=== PATIENT | male | born 1970 | race African-American/Black ===

== ENCOUNTER 2023-08-31 12:41 | Emergency (ER) | payer BC, SELFPAY ==
[2023-08-31 12:44] VITALS: BP 188/99
[2023-08-31 13:03] LABS: % Basophils 0.5 % (0-2); % Eosinophils 2.6 % (0-6); % Immature Granulocytes 0.2 % (0-0.5); % Lymphocytes 43.4 % (20.5-51.1); % Monocytes 7.7 % (1.7-9.3); % Neutrophils 45.6 % (42.2-75.2); Absolute Eosinophils 0.2 10^3/uL (0-0.7); Absolute Lymphocytes 2.5 10^3/uL (1.2-3.4); Absolute Monocytes 0.4 10^3/uL (0.1-0.6); Absolute Neutrophils 2.6 10^3/uL (1.4-6.5); Hematocrit 39.5 % (39.0-52.0); Hemoglobin 13.9 g/dL (13.0-18.0); Mean Corp Hgb Conc. 35.2 g/dL (33.0-37.0); Mean Corpuscular Hgb 30.3 pg (27.0-31.0); Mean Corpuscular Volume 86.2 fL (80.0-94.0); Mean Platelet Volume 9.7 fL (7.4-10.4); Nucleated Red Blood Cells % 0 % (-); Platelet Count 325 10^3/uL (130-400); Red Blood Cell Count 4.58 10^6/uL (4.70-6.10); Red Cell Dist. Width 12.4 % (11.5-14.5); White Blood Cell Count 5.7 10^3/uL (4.8-10.8)
[2023-08-31 13:12] LABS: ALT (SGPT) 38 U/L (0-50); AST (SGOT) 37 U/L (17-59); Albumin 4.8 g/dl (3.5-5.0); Alkaline Phosphatase 90 U/L (38-126); Blood Urea Nitrogen 18 mg/dl (9-20); Calcium 9.7 mg/dl (8.4-10.2); Carbon Dioxide 26 mmol/L (22-30); Chloride 101 mmol/L (98-107); Glucose 232 mg/dl (70-99); Potassium 4.5 mmol/L (3.5-5.1); Sodium 135 mmol/L (135-145); Total Bilirubin 0.6 mg/dl (0.2-1.3); Total Protein 7.9 g/dl (6.3-8.2); eGFR > 60.00
[2023-08-31 13:28] LABS: Troponin I < 0.012 ng/ml
[2023-08-31 13:57] VITALS: BP 170/94
[2023-08-31 14:02] VITALS: BMI 31.9
--- NOTE | 2023-08-31 14:31 | ED.GENMED ---
History of Present Illness
General
Chief Complaint: Chest Pain
Source: patient
Time Seen by Provider: 08/31/23 14:03
Travel History
Have you had any contact with someone who has COVID-19?: No
Do you have any symptoms of coronavirus? Fever > 100 degrees, chills, cough, shortness of breath, sore throat, loss of taste or smell, muscle aches, or headache?: No
History of Present Illness
History of Present Illness:
52-year-old male presents emergency department with complaints of chest discomfort that has had on and off for the last 4 to 5 days. She describes the pain as a 'discomfort', having pain at rest, sometimes associated with diaphoresis, sometimes
associated with left-sided neck pain. Patient states that when the weather was nice he was walking and did not notice symptoms at that time. When he gets the pain he takes nitroglycerin and notes that the symptoms gradually resolve. He also has
taken extra aspirin. The worst episode was on Thursday which lasted a few hours for which she took 3 nitro. The last episode was earlier today when he felt the same chest discomfort lasting till 10 to 20 minutes. When asked about dyspnea he states
he only feels that when he bends over and stands up lasting a minute or 2. He denies dyspnea with associated chest pain. He denies back pain, abdominal pain, nausea, vomiting, fever, chills, or other complaints. He admits to being intermittently
compliant with his medications over the last few months.
Past History
Past History
ED Past Medical History: CAD, HTN, Hypercholesterolemia and NIDDM
ED Past Surgical History: Cardiac
Social History
Tobacco: Non-smoker
Alcohol: None
Drug: None
Personal:
Living: with family
Employment: Employed
Family History
Family History: Other (Noncontributory)
Phy Exam
Physical Exam
Physical Exam:
GENERAL: Alert , in no apparent distress
EYE: pupils equal and reactive
NECK: Supple, no significant adenopathy.
ENT: o/p clr, mmm.
CARDIAC: Regular rate and rhythm .
LUNGS: Clear breath sounds bilaterally, no acute respiratory distress, no wheezes/rales/rhonchi
ABDOMEN: Soft, without focal tenderness, no r/g, no cvat
NEUROLOGICAL: Alert and oriented, no focal neuro deficits
SKIN: Warm and dry, skin intact.
MUSCULOSKELETAL: No edema, well perfused.
PSYCH: Normal and appropriate interaction.
Scores
Heart Score for Chest Pain Patients
STEMI patient?: Not applicable
Course
Orders/Labs/Results
Orders:
Orders
08/31/23 12:42
EKG [Electrocardiogram (*1)] Urgent
Reason for Study: Chest Pain
EKG- Treatment ONCE
08/31/23 12:52
Complete Blood Count/With Diff Urgent
Comprehensive Metabolic Panel Urgent
Troponin I Urgent
08/31/23 16:02
Troponin I Urgent
Abnormal Lab Results
08/31/23
12:52
RBC 4.58 L 10^6/uL
(4.70-6.10)
Glucose 232 H mg/dl
(70-99)
08/31/23 12:52
08/31/23 12:52
Vital Signs
Initial and Last Documented VS:
Initial Vital Signs
Temp Pulse Resp BP Pulse Ox
98.0 F 86 16 188/99 98
08/31/23 12:44 08/31/23 12:44 08/31/23 12:44 08/31/23 12:44 08/31/23 12:44
Last Documented Vital Signs
Temp Pulse Resp BP Pulse Ox
98.0 F 80 17 162/86 95
08/31/23 12:44 08/31/23 17:45 08/31/23 17:45 08/31/23 17:00 08/31/23 17:45
*Critical Care Note
Total Time (30-74mins, 75-104mins- exclusive of procedures): Not Applicable
Update Note
Update Note:
Patient presents to the Emergency Department with __chest pain
Number and Complexity of Problems Addressed at the Encounter
� Chronic conditions affecting care:
� Acute Exacerbation and/or Progression of Chronic Illness:
� Differential Diagnosis includes: But not limited to ACS, reflux, nonspecific chest pain, etc.
Amount and/or Complexity of Data to be Reviewed and Analyzed
� I performed an independent evaluation of and my interpretation is:
EKG: Read by me, normal sinus rhythm, right bundle branch block, LAD, no acute ischemia noted
CT:
Xrays:
Laboratory Studies: 2:34 PM first troponin unremarkable
Other:
� Review of other/old records reveals: Patient had bypass GALVEZ to LAD and SVG to RCA jul 2021 with follow-up recent catheterization that showed patent grafts
� Clinical information was obtained by an independent historian: who is bedside
� Prescriptions/Medications Considered but not given:
� Further testing considered but not performed:
Risk of Complications and/or Morbidity or Mortality of Patient Management
� Social determinants of health affecting care:
� Discussion with other providers (PCP, Hospitalists, Consultants, etc): Case discussed with Dr. Julián Amos via [place] text, described history physical etc. and requested bedside consultation here in the ER
� Escalation of care including admission/observation vs risk of discharge considered: 5:32 PM patient remained stable here, repeat troponin unremarkable, patient seen by cardiology, recommendations as documented here, patient
aware of importance of follow-up and reasons to return to the ER.
ED Attending Note
-
Portions of this chart may have been created with voice recognition software.� Occasional wrong word or��sound alike� substitutions may have occurred due to the inherent limitations of voice recognition software.
Discharge Plan
Departure
Patient Disposition: Home (Routine Discharge)
Date of Disposition: 08/31/23
Time of Disposition: 17:31
Patient with high blood pressure during this ER visit?: Yes
Discharge Problem:
Chest pain
Instructions: Chest Pain [facility] Follow Up, BLOOD PRESSURE
Prescriptions:
New
lisinopril 2.5 mg tablet
2.5 mg PO DAILY Qty: 30 0RF
Continued
amlodipine 5 mg tablet
5 mg PO DAILY Qty: 90 5RF
Changed
metoprolol tartrate 75 mg tablet
100 mg PO BID Qty: 60 11RF
No Action
atorvastatin 80 MG tablet
80 mg PO QPM Qty: 30 11RF
multivitamin [One Daily Multivitamin] 1 EACH tablet
1 ea PO DAILY
metformin 500 MG tablet
1,000 mg PO BID@0800,1700
aspirin 81 mg Tablet,Delayed Release (Dr/Ec)
81 mg PO DAILY
acetaminophen [Tylenol] 325 mg Tablet
650 mg PO Q4H PRN (Reason: shoulder pain)
zinc 50 mg Tablet
50 mg PO DAILY
ezetimibe [Zetia] 10 mg Tablet
10 mg PO QPM
cholecalciferol (vitamin D3) [Vitamin D3] 25 mcg (1,000 unit) Tablet
25 mcg PO DAILY
Farxiga 10 mg Tablet
10 mg PO DAILY
Referrals:
[facility] [Provider Group] - 09/10/23 4:00 pm (You have an echo scheduled at the [facility] 09/10/2023 at 4:00 PM. Please call with questions. )
Winter Escobedo PA-C [Specified Professional Personl] - 09/11/23 1:40 pm (You have a follow up visit with Dr. Crain's Winter COSTA, at the [facility] office. Please call with questions. )
BAYLEE MARTIN CRNP [Family Provider] -
Activity Restrictions/Additional Instructions:
You have been arranged for an echo at the [place] office 09/10/2023 at 4:00. Please call with questions.
Please obtain fasting blood work prior to follow up visit 09/11/2023 (Lipid panel, metabolic panel, and A1c.) Order has been sent to [facility].
Increase your metoprolol to 100mg twice daily
Increase amlodipine to 5mg daily
Restart lisinopril 2.5mg daily.
Interventions
Interventions:
*Risk Screen - Suicide Last Done: 08/31/23 14:02
*General Assessment Last Done: 08/31/23 14:02
*Neglect/Abuse Screening Last Done: 08/31/23 14:02
ED- Fall Risk Assessment Last Done: 08/31/23 14:02
*ED COVID-19 Vaccine History Last Done: 08/31/23 12:44
*Nursing Disposition Last Done: 08/31/23 18:05
ED- Cardiac Assessment Last Done: 08/31/23 14:02
Discharge Date and Time
Discharge Date/Time: 08/31/23 18:07
Print Language: SALVADOREAN
[2023-08-31 15:00] VITALS: BP 150/77
--- NOTE | 2023-08-31 15:55 | CON.CAR ---
Addendum entered and electronically signed by Nasim Waggoner MD 08/31/23 16:57:
Attending addendum: Patient seen and examined. PA note reviewed. Findings independently confirmed by me. Discussed clinical history with patient and his present during history and physical exam. Briefly, this is a 52-year-old gentleman with
a past medical history notable for coronary artery disease and multiple coronary stents and eventual history of coronary artery bypass grafting with a GALVEZ-LAD, SVG-OM, and SVG-distal RCA. The graft to the RCA was small and somewhat atretic. There
were multiple pre-existing stents in the right coronary artery. He is a longstanding diabetic but rarely seeks medical attention and has not had a hemoglobin A1c checked for quite some time. He he ran out of [employer] sometime ago. He has
been under elderly father and spends his time between his home and [place] and work/family duties more locally.
He presented to [facility] emergency department for evaluation of substernal chest pressure that has been intermittently present over the past 4 days. His symptoms seem to occur at random. Last week he returned to somewhat of a normal
exercise program walking up to 2 miles a day and 30 to 40 minutes without anginal symptoms. He will occasionally experience left-sided chest discomfort that he said was somewhat reminiscent of his prior coronary disease.
Physical Exam
GEN: AAO x 3. No acute distress
HEENT: NC/AT, sclera are anicteric, hearing and nares are normal. MMM
NECK: Supple. Normal JVP. No carotid bruit
LUNGS: Clear to bases bilaterally. No wheezing or rhonchi
CV: Regular rate and rhythm. Normal S1/S2. No S3, No S4. Murmur: None
ABD : Soft, NT, ND, No HSM. Bowel sounds are present.
EXT: No CCE
NEURO: No focal neurologic deficits
Data: WBC 5.7, Hgb/HCT 13.9/39.5%, platelets 325 glucose 232, BUN/CR: 18/0.7, troponin less than 0.012, AST/ALT 37/38, glucose 232 nonfasting
ECG: Sinus rhythm with right bundle branch block and ST deviation. Possible old inferior DC.
RECOMMENDATION:
-Awaiting repeat troponin. If troponin remains within normal limits we wouldallow patient to be discharged with plans to follow-up in our office
-Modifiable risk factors of coronary disease have been ignored by the patient and really suboptimally controlled. He has not been seen or evaluated in our office in over a year and ran out of both his [employer] and [employer] several months ago. He has
not had hemoglobin A1c or fasting lipid profile checked in well over a year. In fact, our records have no lipids available.
-Hypertension remains suboptimally controlled. We recommended the following:
Increase Lopressor to 100 mg p.o. twice daily
Increase amlodipine from 2.5 to 5 mg daily
Restart lisinopril 2.5 mg daily with planned blood work in a week. The patient's and the patient both understand that it will be important to have blood work within a week. An order has been printed and given to the patient.
I have asked patient to obtain a home blood pressure monitor and begin recording his blood pressures once daily at varying times. We discussed how to standardized home blood pressure readings by avoiding exercise and caffeine within 30 minutes of
obtaining the home readings, to sit and rest with feet on the ground for 10 minutes before obtaining the reading and to obtain 3 readings 1 minute apart. I have asked him to bring his blood pressure cuff to the office so we can confirm its accuracy.
-Mixed hyperlipidemia: No recent cholesterol readings.
Would recommend continued high intensity lipid-lowering with 80 mg of atorvastatin and to continue Zetia.
The timing of the fasting lipid profile may be somewhat suboptimal and that he just restarted his Zetia, however, he needs blood work after resuming lisinopril and would be reasonable to obtain lipids at the same time
-Diabetes:
I would suspect that his diabetes has been very poorly controlled. 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 However, since caring for elderly parents with failing health he has gotten
away from exercise and his weight has steadily climbed over 70 pounds within the past year. He has been out of [facility]. He has not had his hemoglobin A1c checked for some time. We discussed how important management of his diabetes will be going
forward.
-Coronary artery disease:
Awaiting repeat troponin. We discussed the need to continue aspirin. We discussed modifiable risk factors and weights to prove blood pressures including further titration of medications as listed above
It has been sometime since his LVEF has been reassessed by echocardiogram. This study has been ordered for follow-up.
-Medication noncompliance has been discussed with the patient. Given his youthful age he would greatly benefit from aggressive risk modification moving forward
Original Note:
Consultation
Consultation Request
Date/Time Consultation Requested: 08/31/2023
Date/Time Consultation Performed: 08/31/2023
Requesting Provider: Dr. Quispe
Performing Provider: Dr. Waggoner
Reason for Consultation: Chest Pain
Medical History
-
History of Present Illness:
HPI: Dat is a 52-year-old male with past medical history of CAD status post CABG x 3 07/2021, hypertension, hyperlipidemia, and diabetes mellitus type 2. He presents to ER for evaluation of chest pain. He states that over the past few days he
has had multiple occurrences of intermittent, random chest pain. Symptoms mostly occur while at rest. He has been having episodes of chest pain that lasted 20 minutes to 1 hour multiple times per day. He states the pain is left-sided with
radiation occasionally into his neck. He admits to frequent use of nitroglycerin, however admits that this does not always help with his pain. He has also noted intermittent shortness of breath with bending over as well as intermittent dizziness.
He has had no syncope or near syncope. He has been compliant with his aspirin and atorvastatin, however does admit that he has not been taking his Farxiga or Zetia as he ran out of these a few months ago and recently just got refills. He notes he
has not been as active recently, however when weather was nice a few weeks ago, he walked on a daily basis for exercise and had no exertional symptoms at that time. He admits over the past year, he has been under an increased amount of stress as
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 He admits that he has had weight gain and has not been as active. He does not check his blood pressures at home. Blood pressures in ER are
elevated at 188/99. He reports he is taking amlodipine, however unclear when this was started. In ER, workup has thus far been benign. Troponin negative x 1. Lab work unremarkable otherwise. EKG sinus rhythm with right bundle branch block which
is chronic. No acute ischemic changes noted. Cardiology consulted for evaluation of chest pain given significant coronary history. He is pain-free at this time.
PMH:
CAD
h/o STEMI s/p JASON x 2 to RCA, JASON to LCx 10/12/2016
s/p CABG x 3 (GALVEZ to LAD, SVG to OM1, SVG to RPDA) 07/2021
Severe yuhaaviatam CAD with widely patent GALVEZ to LAD and SVG to OM1. SVG to RPDA patent with diffusely atretic appearance by cath 06/18/2022
Hypertension
Hyperlipidemia
Diabetes mellitus type 2
Past Medical History
Past Medical History: Other (In HPI)
Past Surgical History: Cardiac (PCI x3 2016, CABG x 3 07/2021)
Social History
Tobacco: Non-Smoker
Alcohol: Daily (multiple beers/hard ciders per day)
Drug: None
Personal:
Living: With Family
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
Family History
Family History: CAD
Allergies / Home Medications
Allergy/AdvReac Type Severity Reaction Status Date / Time
No Known Allergies Allergy Verified 08/31/23 12:48
�Medication �Instructions �Recorded �Confirmed �Type
atorvastatin 80 mg tablet 80 mg PO QPM ##30 10/14/16 06/18/22 Rx
metformin 500 mg tablet 1,000 mg PO BID@0800,1700 08/19/19 06/18/22 History
multivitamin (One Daily 1 ea PO DAILY 08/19/19 06/18/22 History
Multivitamin tablet)
acetaminophen 325 mg tablet 650 mg PO Q4H PRN shoulder pain 04/09/22 06/18/22 History
(Tylenol)
aspirin 81 mg tablet,delayed 81 mg PO DAILY 04/09/22 06/18/22 History
release
cholecalciferol (vitamin D3) 25 25 mcg PO DAILY 04/09/22 06/18/22 History
mcg (1,000 unit) tablet (Vitamin
D3)
dapagliflozin propanediol 10 mg 10 mg PO DAILY 04/09/22 06/18/22 History
tablet (Farxiga)
ezetimibe 10 mg tablet (Zetia) 10 mg PO QPM 04/09/22 06/18/22 History
zinc 50 mg tablet 50 mg PO DAILY 04/09/22 06/18/22 History
amlodipine 5 mg tablet 5 mg PO DAILY #90 tabs 06/18/22 Rx
metoprolol tartrate 75 mg tablet 75 mg PO BID #180 tabs 06/18/22 Rx
Review of Systems
-
History Source: Patient
All other systems: Negative unless noted
Physical Exam
Vital Signs
Temp Pulse Resp BP Pulse Ox
98.0 F 86 16 170/94 100
08/31/23 12:44 08/31/23 12:44 08/31/23 12:44 08/31/23 13:57 08/31/23 13:57
Lab Results
08/31/23 12:52
08/31/23 12:52
Troponin I < 0.012 ng/ml 08/31/23 12:52
Physical Exam
General: Well Developed, Well Nourished and No Apparent Distress
HEENT: Anicteric and Moist Mucous Membranes
Cardiac: S1/S2 and Regular Rhythm
Musculoskeletal: No Clubbing, No Cyanosis and No Edema
Skin: Warm and Dry
Neuro: AO x 3 and Nonfocal/Grossly Intact
Psych: Calm
Impression / Plan
-
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 Crain
Impression:
Presented with chest pain
CAD
h/o STEMI s/p JASON x 2 to RCA, JASON to LCx 10/12/2016
s/p CABG x 3 (GALVEZ to LAD, SVG to OM1, SVG to RPDA) 07/2021
Severe yuhaaviatam CAD with widely patent GALVEZ to LAD and SVG to OM1. SVG to RPDA patent with diffusely atretic appearance by cath 06/18/2022
Hypertension
Hyperlipidemia
Diabetes mellitus type 2
Echo 05/22/2022: EF 50 to 55%, moderate hypokinesis of the basal to mid inferior and inferolateral dolan, mild concentric LVH, stage I diastolic dysfunction, no significant valvular disease
LHC 06/18/2022: Severe yuhaaviatam coronary artery disease. Widely patent GALVEZ to LAD and SVG to OM1. SVG to RPDA is patent with CHETNA-3 flow but has diffusely atretic appearance.
Plan:
-Presented with chest pain. Pain is nonexertional in nature, but has been happening frequently, multiple times per day over the past 4 to 5 days.
-Troponin negative x 1 in the ER. Repeat troponin pending.
-EKG reviewed and patient is in sinus rhythm with RBBB. No acute ischemic changes noted.
-BP significantly elevated. Reports he is on amlodipine 2.5 mg daily, however unclear when this was started as it is not on OP cardiac med list.
-On lopressor 75mg BID. With HTN and chest pain, would recommend increasing amlodipine to 5mg daily and lopressor to 100mg BID.
-Previously was on lisinopril as OP, however reports it was stopped for unclear reasons after CABG. Will restart 2.5mg daily. Check CMP as OP.
-Continue aspirin 81mg daily.
-Continue lipitor 80mg daily and zetia 10mg daily. Of note, has not been taking zetia as ran out and only recently obtained refill. Check CVE prior to next OV.
-On metformin and Farxiga. Also ran out of farxiga for a few months and recently restarted. Check Hgb A1c prior to next OV.
-If second troponin returns negative, would be ok for discharge with close outpatient follow up which will be arranged. Would consider echo and/or ischemic evaluation at follow up.
HPI: Dat is a 52-year-old male with past medical history of CAD status post CABG x 3 07/2021, hypertension, hyperlipidemia, and diabetes mellitus type 2. He presents to ER for evaluation of chest pain. He states that over the past few days he
has had multiple occurrences of intermittent, random chest pain. Symptoms mostly occur while at rest. He has been having episodes of chest pain that lasted 20 minutes to 1 hour multiple times per day. He states the pain is left-sided with
radiation occasionally into his neck. He admits to frequent use of nitroglycerin, however admits that this does not always help with his pain. He has also noted intermittent shortness of breath with bending over as well as intermittent dizziness.
He has had no syncope or near syncope. He has been compliant with his aspirin and atorvastatin, however does admit that he has not been taking his Farxiga or Zetia as he ran out of these a few months ago and recently just got refills. He notes he
has not been as active recently, however when weather was nice a few weeks ago, he walked on a daily basis for exercise and had no exertional symptoms at that time. He admits over the past year, he has been under an increased amount of stress as
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 He admits that he has had weight gain and has not been as active. He does not check his blood pressures at home. Blood pressures in ER are
elevated at 188/99. He reports he is taking amlodipine, however unclear when this was started. In ER, workup has thus far been benign. Troponin negative x 1. Lab work unremarkable otherwise. EKG sinus rhythm with right bundle branch block which
is chronic. No acute ischemic changes noted. Cardiology consulted for evaluation of chest pain given significant coronary history. He is pain-free at this time.
Data Reviewed
-
EKG: Tracing Personally Visualized and interpreted
Labs: Labs Reviewed by me
Old Records: Reviewed
[2023-08-31 16:00] VITALS: BP 156/82
[2023-08-31 17:00] VITALS: BP 162/86
[2023-08-31 17:13] LABS: Troponin I < 0.012 ng/ml
== END 2023-08-31 18:07 | disposition home or self-care (01) ==
LOC: EMR 12:41
PROVIDERS: Emergency Medicine; EMERGENCY PHYSICIAN Emergency Medicine; FAMILY PHYSICIAN Nurse Practitioner Family; OTHER PHYSICIAN Internal Medicine Interventional Cardiology
DX: R07.89 Other chest pain (principal); R61 Generalized hyperhidrosis; I10 Essential (primary) hypertension
CPT/HCPCS: 99284; 80053; 84484; 85025; 93005

== ENCOUNTER → 2023-09-07 12:26 | Outpatient (REF) | payer BC, SELFPAY ==
[2023-09-07 13:20] LABS: ALT (SGPT) 49 U/L (0-50); AST (SGOT) 41 U/L (17-59); Albumin 4.6 g/dl (3.5-5.0); Alkaline Phosphatase 85 U/L (38-126); Blood Urea Nitrogen 18 mg/dl (9-20); Calcium 9.8 mg/dl (8.4-10.2); Carbon Dioxide 24 mmol/L (22-30); Chloride 104 mmol/L (98-107); Glucose 184 mg/dl (70-99); HDL Cholesterol 39 mg/dl; LDL Cholesterol, Calculated 101 mg/dl; Potassium 4.5 mmol/L (3.5-5.1); Sodium 136 mmol/L (135-145); Total Bilirubin 0.5 mg/dl (0.2-1.3); Total Cholesterol 163 mg/dl (50-199); Total Protein 7.3 g/dl (6.3-8.2); Triglyceride 119 mg/dl (10-149); Very Low Density Lipoprotein 23 mg/dl (0-30); eGFR > 60.00
[2023-09-07 14:54] LABS: Glycohemoglobin (HgbA1c) 10.5 % (4.0-5.6)
== END ==
LOC: REG 12:26
PROVIDERS: ATTENDING PHYSICIAN Internal Medicine Interventional Cardiology
DX: I25.10 Atherosclerotic heart disease of native coronary artery without angina pectoris (principal); Z86.39 Personal history of other endocrine, nutritional and metabolic disease; E78.00 Pure hypercholesterolemia, unspecified; R07.89 Other chest pain; I25.2 Old myocardial infarction
CPT/HCPCS: 36415; 80053; 80061; 83036

== ENCOUNTER → 2023-09-10 15:34 | Outpatient (REF) | payer BC, SELFPAY | LOC: DHCBS MAIN 15:34 | PROVIDERS: ATTENDING PHYSICIAN Internal Medicine Interventional Cardiology | DX: I25.10 Atherosclerotic heart disease of native coronary artery without angina pectoris (principal); I25.2 Old myocardial infarction; R07.89 Other chest pain | CPT/HCPCS: 93306 ==

== ENCOUNTER → 2024-01-25 07:03 | Outpatient (REF) | payer BC, SELFPAY | LOC: DHCBC/DCA 07:03 | PROVIDERS: ATTENDING PHYSICIAN Physician Assistant Medical; FAMILY PHYSICIAN Nurse Practitioner Gerontology | DX: R06.09 Other forms of dyspnea (principal); R07.9 Chest pain, unspecified; I25.10 Atherosclerotic heart disease of native coronary artery without angina pectoris | CPT/HCPCS: 78452; 93017; A9500 ==

== ENCOUNTER 2024-02-08 15:49 | Emergency (ER) | payer BC, SELFPAY ==
[2024-02-08 15:53] VITALS: BP 111/74
[2024-02-08 16:44] LABS: % Basophils 0.7 % (0-2); % Eosinophils 2.8 % (0-6); % Immature Granulocytes 0.2 % (0-0.5); % Lymphocytes 46.6 % (20.5-51.1); % Monocytes 8.1 % (1.7-9.3); % Neutrophils 41.6 % (42.2-75.2); Absolute Eosinophils 0.2 10^3/uL (0-0.7); Absolute Lymphocytes 2.8 10^3/uL (1.2-3.4); Absolute Monocytes 0.5 10^3/uL (0.1-0.6); Absolute Neutrophils 2.5 10^3/uL (1.4-6.5); Hematocrit 36.5 % (39.0-52.0); Hemoglobin 12.9 g/dL (13.0-18.0); Mean Corp Hgb Conc. 35.3 g/dL (33.0-37.0); Mean Corpuscular Hgb 30.4 pg (27.0-31.0); Mean Corpuscular Volume 85.9 fL (80.0-94.0); Mean Platelet Volume 9.9 fL (7.4-10.4); Nucleated Red Blood Cells % 0 % (-); Platelet Count 304 10^3/uL (130-400); Red Blood Cell Count 4.25 10^6/uL (4.70-6.10); Red Cell Dist. Width 12.5 % (11.5-14.5); White Blood Cell Count 6.1 10^3/uL (4.8-10.8)
[2024-02-08 16:57] LABS: ALT (SGPT) 33 U/L (0-50); AST (SGOT) 38 U/L (17-59); Albumin 4.8 g/dl (3.5-5.0); Alkaline Phosphatase 97 U/L (38-126); Blood Urea Nitrogen 28 mg/dl (9-20); Calcium 9.7 mg/dl (8.4-10.2); Carbon Dioxide 25 mmol/L (22-30); Chloride 97 mmol/L (98-107); Glucose 111 mg/dl (70-99); Potassium 4.4 mmol/L (3.5-5.1); Sodium 135 mmol/L (135-145); Total Bilirubin 0.7 mg/dl (0.2-1.3); Total Protein 7.3 g/dl (6.3-8.2); eGFR > 60.00
[2024-02-08 17:00] VITALS: BP 106/66
[2024-02-08 17:09] LABS: Troponin I < 0.012 ng/ml
--- NOTE | 2024-02-08 17:41 | ED.GENMED ---
History of Present Illness
General
Chief Complaint: Dizziness
Time Seen by Provider: 02/08/24 17:08
History of Present Illness
History of Present Illness:
Patient is a 53-year-old male with history of CAD with multiple stents, hypertension presenting to the emergency department with chest pain and dizziness. Patient states that 2 weeks ago his blood pressure medications were adjusted and he was
started on a combination lisinopril/hydrochlorothiazide. Since then has been having episodes of lightheadedness dizziness. Today he woke up with feeling lightheaded dizzy. Checked his blood pressure and it was in the 80s. It did improve to the
90s however he was still symptomatic so then he had 55 ounces of water as well as saltine crackers and then his blood pressure increased to the 114. He does state he has been having decreased p.o. and had he has been avoiding salt trying to improve
his health. He also around 1 PM developed neck pain that radiated down to his chest while he was sitting and it lasted 15 minutes. This did not feel like his prior heart attack. No nausea or vomiting. No diarrhea.
Past History
Past History
ED Past Medical History: CAD, HTN, Hypercholesterolemia and NIDDM
ED Past Surgical History: Cardiac
Social History
Tobacco: Non-smoker
Alcohol: None
Drug: None
Personal:
Living: with family
Employment: Employed
Family History
Family History: Other (Noncontributory)
Phy Exam
Physical Exam
Physical Exam:
GENERAL: in no acute distress
HEENT: normocephalic, extraocular movements intact, moist oral mucosa
NECK: normal inspection
RESPIRATORY: no respiratory distress, clear to auscultation bilaterally
CARDIOVASCULAR: regular rate and rhythm
ABDOMEN/: soft, non-distended, non-tender to palpation, no rebound or guarding
EXTREMITIES: non-tender, no edema/swelling
NEUROLOGIC: awake and alert, moves all extremities
SKIN: warm
Course
Orders/Labs/Results
Orders:
Orders
02/08/24 15:53
Electrocardiogram (*1) Urgent
Reason for Study: Other
Other Reason for Exam: neck pain
EKG- Treatment ONCE
02/08/24 16:29
Complete Blood Count/With Diff Urgent
Comprehensive Metabolic Panel Urgent
Troponin I Urgent
02/08/24 17:30
0.9% Sodium Chloride 500 ml [Nss] 500 ml IV BOLUS
02/08/24 19:37
Troponin I Routine
02/08/24 19:39
Electrocardiogram (*1) Urgent
EKG- Treatment ONCE
Abnormal Lab Results
02/08/24
16:29
RBC 4.25 L 10^6/uL
(4.70-6.10)
Hgb 12.9 L g/dL
(13.0-18.0)
Hct 36.5 L %
(39.0-52.0)
Neutrophils % 41.6 L %
(42.2-75.2)
Chloride 97 L mmol/L
(98-107)
BUN 28 H mg/dl
(9-20)
Glucose 111 H mg/dl
(70-99)
02/08/24 16:29
02/08/24 16:29
Vital Signs
Initial and Last Documented VS:
Initial Vital Signs
Temp Pulse Resp BP Pulse Ox
97.8 F 83 18 111/74 99
02/08/24 15:53 02/08/24 15:53 02/08/24 15:53 02/08/24 15:53 02/08/24 15:53
Last Documented Vital Signs
Temp Pulse Resp BP Pulse Ox
97.8 F 83 18 111/74 99
02/08/24 15:53 02/08/24 15:53 02/08/24 15:53 02/08/24 15:53 02/08/24 15:53
MDM/Problems Addressed
Differential Diagnosis Includes:
Patient is a 53-year-old male with history of hypertension, CAD with stents presenting to the emergency department lightheadedness dizziness and chest pain that is now resolved. Vitals are notable for blood pressure in the low 100 and exam is
reassuring.
Differential: ACS versus dehydration versus SRAVAN
MDM: Given the neck pain and chest pain and his history I am concerned about ACS. Initial EKG per my interpretation normal sinus rhythm with right bundle hamlet block and is similar to prior. Given her lightheadedness dizziness and low blood
pressure could be related to the antihypertensive or dietary changes.
Will order basic blood work EKG and IV fluids. He will need delta troponin.
*Critical Care Note
Total Time (30-74mins, 75-104mins- exclusive of procedures): Not Applicable
Update Note
Update Note:
Second troponin negative. Given his blood pressure has improved after the IV fluids. He does feel much better. He will follow-up with cardiology and PCP. Will discharge at this time. Education provided on restarting antihypertensives. Given
that the old antihypertensive was working better decision was made to only take the lisinopril 5 mg if his blood pressure is greater than 120.
ED Attending Note
-
Portions of this chart may have been created with voice recognition software.� Occasional wrong word or��sound alike� substitutions may have occurred due to the inherent limitations of voice recognition software.
Discharge Plan
Departure
Patient Disposition: Home (Routine Discharge)
Date of Disposition: 02/08/24
Time of Disposition: 21:24
Patient with high blood pressure during this ER visit?: No
Discharge Problem:
Dizziness, Chest pain
Instructions: Chest Pain DCA Follow Up
Prescriptions:
No Action
atorvastatin 80 MG tablet
80 mg PO QPM Qty: 30 11RF
multivitamin [One Daily Multivitamin] 1 EACH tablet
1 ea PO DAILY
metformin 500 MG tablet
1,000 mg PO BID@0800,1700
aspirin 81 mg Tablet,Delayed Release (Dr/Ec)
81 mg PO DAILY
acetaminophen [Tylenol] 325 mg Tablet
650 mg PO Q4H PRN (Reason: shoulder pain)
zinc 50 mg Tablet
50 mg PO DAILY
ezetimibe [Zetia] 10 mg Tablet
10 mg PO QPM
cholecalciferol (vitamin D3) [Vitamin D3] 25 mcg (1,000 unit) Tablet
25 mcg PO DAILY
Farxiga 10 mg Tablet
10 mg PO DAILY
lisinopril 2.5 mg tablet
2.5 mg PO DAILY Qty: 30 0RF
amlodipine 5 mg tablet
5 mg PO DAILY Qty: 90 5RF
metoprolol tartrate 75 mg tablet
100 mg PO BID Qty: 60 11RF
Activity Restrictions/Additional Instructions:
You were seen in the Emergency Department today for lightheadedness and chest pain. While you were here we performed blood work, which was reassuring. Please follow-up with her primary care doctor to have your blood work rechecked to evaluate your
kidney function. Please take the blood pressure medications as we discussed and please check your blood pressure every day.
We would like for you to follow up with your primary care physician for further evaluation. If you experience fever, worsening of your symptoms, or develop any other new or concerning symptoms, please return to the Emergency Department immediately.
Please see the attached sheet for additional information.
Interventions
Interventions:
*Risk Screen - Suicide Last Done: 02/08/24 17:15
*Neglect/Abuse Screening Last Done: 02/08/24 17:15
ED- Neurological Assessment Last Done: 02/08/24 17:15
ED- Cardiac Assessment Last Done: 02/08/24 17:15
Discharge Date and Time
Print Language: TUVALUAN
[2024-02-08] MEDS: NSS 500 IV (17:51)
[2024-02-08 18:00] VITALS: BP 125/73
[2024-02-08 19:00] VITALS: BP 121/77
[2024-02-08 20:00] VITALS: BP 122/72
[2024-02-08 20:10] LABS: Troponin I < 0.012 ng/ml
[2024-02-08 21:00] VITALS: BP 120/67
== END 2024-02-08 21:45 | disposition home or self-care (01) ==
LOC: EMR 15:49
PROVIDERS: Student in an Organized Health Care Education/Training Program; EMERGENCY PHYSICIAN Student in an Organized Health Care Education/Training Program; FAMILY PHYSICIAN Nurse Practitioner Gerontology
DX: R42 Dizziness and giddiness (principal); I25.10 Atherosclerotic heart disease of native coronary artery without angina pectoris; I10 Essential (primary) hypertension; E11.9 Type 2 diabetes mellitus without complications; E78.00 Pure hypercholesterolemia, unspecified; Z95.5 Presence of coronary angioplasty implant and graft
CPT/HCPCS: 99283; 80053; 84484; 85025; 93005

== ENCOUNTER 2024-02-29 11:59 | Inpatient (IN) | payer BC, SELFPAY ==
[2024-02-26] VITALS (23 sets, daily range): BP systolic 117–168; BP diastolic 68–99; BMI 29.4
--- NOTE | 2024-02-26 09:08 | ITS.CL.CATH ---
Assistant Boiler Operator - Catheterization
Cardiac Catheterization
Procedure Report:
LEFT HEART CATHETERIZATION
Date of Procedure: February 26, 2024
Referring: Winter Escobedo PA-C and Kevyn Singh D.O.
PROCEDURES:
1. Left heart cath, coronary angiogram, graft angiography
2. Ultrasound-guided access
INDICATION: Patient is a 53-year-old gentleman with past medical history of hypertension, hyperlipidemia, type 2 diabetes mellitus, [id number], coronary artery disease status post RCA stents in 2016 with subsequent need for coronary
artery bypass graft at [facility] in July 2021 with GALVEZ to LAD, saphenous vein graft to OM and distal RCA who postoperatively especially going through cardiac rehab had ongoing episodes of chest discomfort with some typical and atypical
features. Nuclear stress test was obtained which showed a reversible defect in basal to mid anteroseptal dolan concerning for ischemia and thus he now presents for elective coronary angiography. He had undergone heart catheterization in 2022 but
significant baseline CAD with no obvious culprit and patent grafts. Over the last couple of months he has been having recurrent chest discomfort with some atypical and typical features with intermittent shortness of breath, not always exertional in
nature. He played baseball last night with no limitations. He had a repeat nuclear stress test which showed stable findings but given ongoing symptoms he is now referred for a left heart catheterization. He had been taken off amlodipine which was
started after 2022 heart catheterization and has now resumed starting yesterday.
ACCESS: Right common femoral artery, 6 Yakut sheath, under ultrasound guidance, using a micropuncture kit.
HEMODYNAMICS : (mmHg)
AO (s/d) : 141/78
LV (s/d) : 140/9
LVEDP : 21
Using a 6Fr JL4 catheter and a JR4 catheter for the left and right coronary arteries respectively, selective cine coronary angiography was performed in various angulated and oblique views using automated injections of non-ionic contrast. Using a 5
Fr MPA diagnostic catheter we engaged the SVG to the RPDA (previously JR4 and AL-1 were unable to selectively engage), a Merit NICK catheter to engage the GALVEZ and the JR4 diagnostic catheter to engage the SVG to the OM1.
CORONARY FINDINGS:
DOMINANCE: Right
LEFT MAIN:� Large caliber vessel that gives rise to the left anterior descending and left circumflex branches. The left main has diffuse 20-30% stenosis.
LEFT ANTERIOR DESCENDING:� Large caliber vessel that wraps around the cardiac apex. The LAD is severely calcified and has proximal diffuse 20-30% stenosis and there is a known 100% chronic total occlusion in the mid-vessel. The mid-LAD is grafted by
the GALVEZ and has mild disease as it wraps around the apex.
LEFT CIRCUMFLEX:� Large caliber vessel that gives off large caliber first major obtuse marginal (OM) and a moderate caliber second OM as it courses along the atrio-ventricular (AV) groove.� The mid-LCx right before the take-off of the OM1 has a 80%
stenosis. The OM1 has competitive flow from the SVG graft. The OM2 has a mid-vessel 70% stenosis.
RIGHT CORONARY ARTERY:� Large caliber dominant severely calcified vessel that gives rise to the posterior descending artery (RPDA) and postero-lateral ventricular (RPLV) branches distally. The Mid-RCA is previously stented with severe in-stent
restenosis with up to 70-80% stenosis. The SVG to the RPDA is patent with CHETNA 3 flow but is small in caliber, almost with an atretic appearance but remains patent and stable compared to last heart catheterization in 2022.
GRAFT ANGIOGRAPHY:
GALVEZ to LAD: Widely patent.
SVG to RPDA: The SVG to the RPDA is patent but is small in caliber and with CHETNA 3 flow but has a diffusely atretic appearance.
SVG to OM1: Widely patent, with retrograde filling of the OM2.
RADIATION SUMMARY: Fluoro Time (min): 7.8, Dose (mGy): 441.69, DAP (Gy.cm2) : 31.34
Closure Device: 6 Yakut Angio-Seal over the right common femoral arterial access with successful hemostasis.
CONCLUSIONS
1. Severe little traverse coronary artery disease, but overall stable compared to heart catheterization from 2022.
2. All grafts are patent similar to heart catheterization 2022.
3. Elevated LVEDP at 21 mmHg.
RECOMMENDATIONS
1. Given no obvious culprit with mostly atypical features to his chest pain, plan for optimization of medical therapy with close outpatient follow-up. We will also initiate low-dose diuretic to improve filling pressures given intermittent dyspnea
on exertion.
2. Wean radial band per protocol.
3. Aggressive management of cardiovascular risk factors.
Copy: Winter Escobedo PA-C and Kevyn Singh D.O.
Valerie Crain MD, FACC, [facility]
[2024-02-26] MEDS: NSS 320 ML IV (09:18)
[2024-02-26 09:38] LABS: Glucose - Point of Care 98 mg/dl (70-99)
[2024-02-26] MEDS: LASIX 20 MG IV (13:01)
[2024-02-26 14:37] LABS: Glucose - Point of Care 133 mg/dl (70-99)
--- NOTE | 2024-02-26 15:01 | W.PN.UPDATE ---
Addendum entered and electronically signed by ELLA No 02/26/24 16:44:
After fluid bolus, pt's visual symptoms resolved. He has remained stable with only complaint of headache. He has eaten and had po fluids. BP stable 140s. HR stable NSR 70s. Right groin site without pain, no ht/bleeding. After bedrest, attempted to
get him OOB to chair/ambulate, he complained of nausea and new left sided facial and LUE numbness. NO recurrent visual changes, denies lightheadedness or diaphoresis. He was standing and refused to walk any further from bedside.
Dr. Crain aware of prior events and now called to bedside. Decision made to admit pt for neuro eval and workup. Pt will be admitted to hospitalist service.
Original Note:
Update Note
Progress Note Update
CTSP re: dizziness/diaphoresis after getting up to go to bathroom post cath. He was given 20mg IV lasix post cath for EDP 21, stable coronary anatomy, unchanged from before.
He got back to bed with help from RN. SBP stable 140s, glucose 130s. Symptoms resolved once back on bedrest.
Now states he has cloudy vision bilaterally with a headache. Denies floaters, double vision, or any other visual changes. Speech is clear and answers questions appropriately. Brief neuro exam WNL, MAEE /.
Possibly related to contrast. Will give an additional 500cc NSS and consider neuro consult if not resolved.
--- NOTE | 2024-02-26 15:03 | PTCARENOTE ---
Addendum entered by Maribel Phillips RN 02/26/24 15:23:
handoff report given to Deysi MARMOLEJO
Original Note:
late entry: approx 1430 assisted patient to sit up at bedside slowly and ambulate to bathroom. patient tolerated well and groin site clean dry intact, WNL. pt used call rubi in bathroom and upon entry found patient to be leaning towards
wall/handrail, reporting lightheadedness, dizziness. noted patient to be diaphoretic and pale. assisted patient to sit on toilet and called for assistance. 2 RNs assisted patient to stretcher and returned to patient bay. placed on monitor and NSR,
pox 98%, bp WNL. poc glucose 133. FIELD CROP FARMER notified and to see patient. PO fluid given and vitals monitored. patient reported voiding large amount urine while in bathroom.
approx 1500: patient reported visual changes. reports 'blurriness, whiteness, unable to see faces'. neuro check completed and no neuro deficits noted. +GAVI. reported to FIELD CROP FARMER who discussed with physician.
Dr Crain to bedside and evaluated patient.
vitals remain stable. continuing to monitor.
1512: patient reports slight improvement in visual changes. pallor improved. remains at bedside.
--- NOTE | 2024-02-26 16:37 | PTCARENOTE ---
Patient sitting up in bed. Patient called out stating he feels lightheaded. VSS. LUNCHROOM ATTENDANT aware. Patient agreed to try kazakh muffin and catalina lim.
--- NOTE | 2024-02-26 16:39 | PTCARENOTE ---
Patient sitting at side of bed. VSS. Now c/o and slight facial numbness and tingling in Left hand. Neuro intact. Smile symmetrical. No tongue deviation. pupils equal and reactive. Grasp in Upper extremities equal and firm. Able to ambulate 50
feet with some nausea and numbness radiating from left hand to left forearm. OFFICE SUPPORT CLERK made aware. OFFICE SUPPORT CLERK talking to MD. Awaiting further instructions
--- NOTE | 2024-02-26 16:49 | PTCARENOTE ---
Numbness has subsided per patient.
--- NOTE | 2024-02-26 17:15 | PTCARENOTE ---
Addendum entered by Deysi Perez RN 02/26/24 18:10:
Report given to Jesus MARMOLEJO.
Original Note:
Nephrology at bedside. Patient taken to CT scan in ER. Patient transferred to room 434-[address]
--- NOTE | 2024-02-26 17:33 | CON.NEURO ---
Consultation
Order
Date of Consultation: 02/26/24
Requesting Provider: Valerie Crain MD
Reason for Consult: stroke alert
CC: none
HPI: This is a 53-year-old left-handed man who presented to [facility] for diagnostic cardiac catheterization. Neurology consultation was requested for evaluation and management of transient neurological symptoms. According to the
patient he developed transient visual changes 'a lot of white light', affecting his peripheral vision lasting for around 15-30 minutes around 3 pm today. Mr. Obrien states that he had similar episodes in the past.
The patient reports transient left lip/face and hand and forearm numbness lasting for a little over five minutes that he experiencing around 5 PM . No reports of dysarthria, dysphagia, motor weakness, vertigo.
The patient currently reports a mild headache in the back of his head. He does not have a history of migraines.
FS 133
PMH: CAD, HTN, DLP, Apolipoprotein E deficiency , DM, obesity, GERD, vit D deficiency
PSH:CABG. PTCI
FH: sister-migraine
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 Drinks alcohol several times per week.
All:NKDA
ROS: positive for transient visual and sensory symptoms. Positive for headache. Positive intermittent chest pain and palpitations
VS: 142/80, 83.
General: Well developed. In no acute distress.
Cardio: Regular rate and rhythm without murmur. Extremities are without cyanosis or edema.
Neuro:
Mental Status: Alert, oriented to person, place, and date. Normal attention and recall. Good fund of knowledge. Follows complex requests across the midline. Comprehension, naming, and repetition intact.
Cranial Nerves: . Pupils are equally round and reactive to light. EOMs full. Visual pandya full to confrontation. No ptosis. No nystagmus. V1-V3 intact to light touch and pinprick bilaterally, symmetric. Face symmetric. Normal hearing AU.
The palate elevated well. SCMs and traps 5/5. Tongue midline. No dysarthria.
Motor: Normal bulk and tone. No pronator or arm drift. Strength 5/5 throughout. No clonus. Normal fine finger movements. No pronator or leg drift.
Sensory: No extinction to DSS
Coordination: No dysmetria or tremor.
Gait: deferred
Assessment and Plan:
I. TIAs
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
III. CAD
-Neurochecks Q2h
-Continue Telemetry monitoring.
-Stat CT head/CTA head/neck
-CBC, COMP
-Start Plavix 75 mg once a day if no contraindications.
-Continue ASA 81mg QD
-Continue Lipitor 80 mg QHS.
-Brain MRI wo sanjuanita
-Please contact neurology service with any new symptoms, change on neuro exam
-DVT prophylaxis.
I personally reviewed all radiology and labs along with past medical records pertinent to current medical problems. Total time spent in patient care is 60 minutes.
Thank you for allowing us to participate in the care of this patient. We will continue to follow. Please do not hesitate to contact us with any questions or concerns.
Subjective/Objective
Subjective Data
Date of Service: February 26, 2024
Objective Data
Vital Signs
Temp Pulse Resp BP Pulse Ox
36.1 C 83 11 142/80 100
02/26/24 08:38 02/26/24 16:33 02/26/24 16:33 02/26/24 16:33 02/26/24 16:33
Patient Allergies
No Known Allergies Allergy (Verified 02/08/24 15:55)
Medications
-
Active Medications
Generic Name Dose Route Start Last Admin
Trade Name Freq PRN Reason Stop Dose Admin
Acetaminophen 650 mg 02/26/24 11:37
Acetaminophen 325 Mg Tablet PO 03/25/24 11:36
Q4HPRN PRN
mild pain
Amlodipine Besylate 2.5 mg 02/27/24 08:00
Amlodipine 2.5 Mg Tablet PO 03/26/24 07:59
DAILY CATIE
Aspirin 81 mg 02/27/24 08:00
Aspirin 81 Mg (Enteric Coated) Tablet PO 03/26/24 07:59
DAILY CATIE
Dextrose 12.5 grams 02/26/24 16:59
Dextrose 50% (0.5 Grams/Ml) 50 Ml Syringe IV 03/25/24 16:58
[id number] PRN
hypoglycemia
Protocol
Ezetimibe 10 mg 02/26/24 22:00
Ezetimibe (Zetia) 10 Mg Tablet PO 03/25/24 21:59
HS CATIE
Glucagon 1 mg 02/26/24 16:59
Glucagon 1 Mg Vial IM 03/25/24 16:58
PRN PRN
hypoglycemia
Protocol
Sodium Chloride 1,000 mls @ 0 mls/hr 02/26/24 11:45
Nss IV 02/27/24 11:37
PER PROTOCOL CATIE
Protocol
Per Protocol
Insulin Aspart 0 units 02/27/24 07:30
Insulin Aspart Moderate Resistance 300 Units/3 Ml Pen.Injctr SC 03/26/24 07:29
AC CATIE
Protocol
Lisinopril 5 mg 02/27/24 08:00
Lisinopril 5 Mg Tablet PO 03/26/24 07:59
DAILY CATIE
Metoprolol Tartrate 100 mg 02/26/24 20:00
Metoprolol 100 Mg Regular Release Tablet PO 03/25/24 19:59
BID CATIE
Non-Formulary Medication 10 mg 02/27/24 08:00
Empagliflozin [Jardiance] PO 03/26/24 07:59
DAILY CATIE
Non-Formulary Medication 20 mg 02/27/24 08:00
Omeprazole PO 03/26/24 07:59
DAILY CATIE
Home Medications
�Medication �Instructions �Recorded
atorvastatin 80 mg tablet 80 mg PO QPM ##30 10/14/16
metformin 500 mg tablet 1,000 mg PO BID@0800,1700 08/19/19
multivitamin (One Daily 1 ea PO DAILY 08/19/19
Multivitamin tablet)
acetaminophen 325 mg tablet 650 mg PO Q4H PRN shoulder pain 04/09/22
(Tylenol)
aspirin 81 mg tablet,delayed 81 mg PO DAILY 04/09/22
release
ezetimibe 10 mg tablet (Zetia) 10 mg PO QPM 04/09/22
Vitamin D3 1 tab PO DAILY 02/26/24
amlodipine 2.5 mg tablet 2.5 mg PO DAILY 02/26/24
empagliflozin 10 mg tablet 10 mg PO DAILY 02/26/24
(Jardiance)
furosemide 20 mg tablet (Lasix) 20 mg PO DAILY #90 tabs 02/26/24
lisinopril 5 mg tablet 5 mg PO DAILY 02/26/24
magnesium 1 tab PO DAILY 02/26/24
metoprolol tartrate 100 mg tablet 100 mg PO BID 02/26/24
omeprazole 20 mg tablet,delayed 20 mg PO DAILY 02/26/24
release
Vital Signs and Labs
-
Vital Signs and Labs:
Vital Signs
Temp Pulse Resp BP Pulse Ox
36.1 C 83 11 142/80 100
02/26/24 08:38 02/26/24 16:33 02/26/24 16:33 02/26/24 16:33 02/26/24 16:33
Medications
-
Medications:
Generic Name Dose Route Start Last Admin
Trade Name Freq PRN Reason Stop Dose Admin
Acetaminophen 650 mg 02/26/24 11:37
Acetaminophen 325 Mg Tablet PO 03/25/24 11:36
Q4HPRN PRN
mild pain
Amlodipine Besylate 2.5 mg 02/27/24 08:00
Amlodipine 2.5 Mg Tablet PO 03/26/24 07:59
DAILY CATIE
Aspirin 81 mg 02/27/24 08:00
Aspirin 81 Mg (Enteric Coated) Tablet PO 03/26/24 07:59
DAILY CATIE
Dextrose 12.5 grams 02/26/24 16:59
Dextrose 50% (0.5 Grams/Ml) 50 Ml Syringe IV 03/25/24 16:58
[id number] PRN
hypoglycemia
Protocol
Ezetimibe 10 mg 02/26/24 22:00
Ezetimibe (Zetia) 10 Mg Tablet PO 03/25/24 21:59
HS CATIE
Glucagon 1 mg 02/26/24 16:59
Glucagon 1 Mg Vial IM 03/25/24 16:58
PRN PRN
hypoglycemia
Protocol
Sodium Chloride 1,000 mls @ 0 mls/hr 02/26/24 11:45
Nss IV 02/27/24 11:37
PER PROTOCOL CATIE
Protocol
Per Protocol
Insulin Aspart 0 units 02/27/24 07:30
Insulin Aspart Moderate Resistance 300 Units/3 Ml Pen.Injctr SC 03/26/24 07:29
AC CATIE
Protocol
Lisinopril 5 mg 02/27/24 08:00
Lisinopril 5 Mg Tablet PO 03/26/24 07:59
DAILY CATIE
Metoprolol Tartrate 100 mg 02/26/24 20:00
Metoprolol 100 Mg Regular Release Tablet PO 03/25/24 19:59
BID CATIE
Non-Formulary Medication 10 mg 02/27/24 08:00
Empagliflozin [Jardiance] PO 03/26/24 07:59
DAILY CATIE
Non-Formulary Medication 20 mg 02/27/24 08:00
Omeprazole PO 03/26/24 07:59
DAILY CATIE
Sodium Chloride 0 flush 02/26/24 18:00
Sodium Chloride 0.9% (Flush) Syringe IV 03/25/24 17:59
PER PROTOCOL CATIE
Home Medications
-
Home Medications
atorvastatin 80 mg tablet 80 mg PO QPM ##30 10/14/16
metformin 500 mg tablet 1,000 mg PO BID@0800,1700 08/19/19
multivitamin (One Daily Multivitamin tablet) 1 ea PO DAILY 08/19/19
acetaminophen 325 mg tablet (Tylenol) 650 mg PO Q4H PRN shoulder pain 04/09/22
aspirin 81 mg tablet,delayed release 81 mg PO DAILY 04/09/22
ezetimibe 10 mg tablet (Zetia) 10 mg PO QPM 04/09/22
Vitamin D3 1 tab PO DAILY 02/26/24
amlodipine 2.5 mg tablet 2.5 mg PO DAILY 02/26/24
empagliflozin 10 mg tablet (Jardiance) 10 mg PO DAILY 02/26/24
furosemide 20 mg tablet (Lasix) 20 mg PO DAILY #90 tabs 02/26/24
lisinopril 5 mg tablet 5 mg PO DAILY 02/26/24
magnesium 1 tab PO DAILY 02/26/24
metoprolol tartrate 100 mg tablet 100 mg PO BID 02/26/24
omeprazole 20 mg tablet,delayed release 20 mg PO DAILY 02/26/24
[2024-02-26] MEDS: NSS 500 IV (18:08)
--- NOTE | 2024-02-26 18:41 | HPS.HSE ---
Family Physician
-
Family Physician: ELLA Garrido
Chief Complaint
-
left face and arm numbness following OP cardiac catheterization
History of Present Illness
The patient is a 53 yo male with PMH significant for HTN, HLD, IDDM, CAD, CABG [facility] 3 years ago (approximately), seen by Dr. [facility]rain [facility] for cath and had patent grafts at that time and was recommended medical management, presented
today for atypical anginal symptoms and was taken to labor arbitrator hearing office again, found to have patent grafts today's cath, however post cath had an episode of near syncope after urinating associated with dizziness and nausea, cloudiness in his eyes, along with
left-sided upper lip tingling and tingling and numbness, like pins a needles down his left harm and 2 fingers of hand. Neurology was called urgently to labor arbitrator hearing office, and he was taken for CTA head and neck urgently. Neuro symptoms are resolved at this
time. No motor weakness, no LOC, no CP, no SOB, no palpitations, no active n/v, he tolerated chicken sandwich tonight without incident, able to swallow, no voice change, no dysarthria, no CN deficits. No dysuria. He is being admitted for stroke
work-up. Right Groin site is intact, no bruits, no bleeding, no hematoma. He received IV fluid bolus in labor arbitrator hearing office that improved lightheadedness.
Medical History
Past Medical History
Past Medical History: Reports CAD, GERD, HTN, Hypercholesterolemia, IDDM and Other (Vit D deficiency, apolipoprotein deficiency)
Past Surgical History: Reports Cardiac (Cath with stents, CABG)
Social History
Tobacco: Former Smoker
Alcohol: Occasional (several times per week)
Personal:
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
Family History
Family History: Other (Sister-migraines)
Allergies / Home Medications
Allergies reflects when Allergies were last updated in [facility].
Home Medications with original date entered in [facility]
Allergy/Medication List:
Allergies
Allergy/AdvReac Type Severity Reaction Status Date / Time
No Known Allergies Allergy Verified 02/08/24 15:55
Home Medications
atorvastatin 80 mg tablet 80 mg PO QPM ##30 10/14/16
metformin 500 mg tablet 1,000 mg PO BID@0800,1700 08/19/19
multivitamin (One Daily Multivitamin tablet) 1 ea PO DAILY 08/19/19
acetaminophen 325 mg tablet (Tylenol) 650 mg PO Q4H PRN shoulder pain 04/09/22
aspirin 81 mg tablet,delayed release 81 mg PO DAILY 04/09/22
ezetimibe 10 mg tablet (Zetia) 10 mg PO QPM 04/09/22
Vitamin D3 1 tab PO DAILY 02/26/24
amlodipine 2.5 mg tablet 2.5 mg PO DAILY 02/26/24
empagliflozin 10 mg tablet (Jardiance) 10 mg PO DAILY 02/26/24
furosemide 20 mg tablet (Lasix) 20 mg PO DAILY #90 tabs 02/26/24
lisinopril 5 mg tablet 5 mg PO DAILY 02/26/24
magnesium 1 tab PO DAILY 02/26/24
metoprolol tartrate 100 mg tablet 100 mg PO BID 02/26/24
omeprazole 20 mg tablet,delayed release 20 mg PO DAILY 02/26/24
Review of Systems
-
A 12 point ROS was completed and negative except as noted: Yes
Physical Exam
Vital Signs
Vital Signs
Temp Pulse Resp BP Pulse Ox
97 F 89 24 168/81 98
02/26/24 08:38 02/26/24 17:33 02/26/24 17:33 02/26/24 17:33 02/26/24 17:33
Physical Exam
General: Well Developed, Well Nourished, No Apparent Distress, Comfortable and Conversant
HEENT: NormoCephalic, Anicteric and Moist mucous membranes
Respiratory: Clear
Cardiac: S1/S2 and Regular Rhythm
GI: Soft, Non Tender and Non Distended
Musculoskeletal: No Clubbing, No Cyanosis and No Edema
Skin: Warm and Dry
Neuro: AO x 3, No Motor Deficits and Nonfocal/grossly intact
Psych: Calm
Data Reviewed
-
CT Scan: Image Personally Visualized and interpreted and Report Reviewed by me
Impression/Plan
-
IMPRESSION:
The patient is a 53 yo male with PMH significant for HTN, HLD, IDDM, CAD, CABG [facility] 3 years ago (approximately), seen by Dr. [facility] for cath and had patent grafts at that time and was recommended medical management, presented
today for atypical anginal symptoms and was taken to labor arbitrator hearing office again, found to have patent grafts today's cath, however post cath had an episode of near syncope after urinating associated with dizziness and nausea, cloudiness in his eyes, along with
left-sided upper lip tingling and tingling and numbness, like pins a needles down his left harm and 2 fingers of hand. Neurology was called urgently to labor arbitrator hearing office, and he was taken for CTA head and neck urgently. Neuro symptoms are resolved at this
time. No motor weakness, no LOC, no CP, no SOB, no palpitations, no active n/v, he tolerated chicken sandwich tonight without incident, able to swallow, no voice change, no dysarthria, no CN deficits. No dysuria. He is being admitted for stroke
work-up. Right Groin site is intact, no bruits, no bleeding, no hematoma. He received IV fluid bolus in labor arbitrator hearing office that improved lightheadedness.
CTA head and neck:
IMPRESSION: No acute intracranial pathology. No evidence of M1 nor M2 occlusion. No carotid dissection.
Mild atherosclerotic vascular disease. No focal stenosis.
Straightening of normal cervical spine lordosis. This can be seen in muscular spasm.
Too small to characterize hypodense right thyroid lesion likely a benign nodule. Nonurgent dedicated thyroid ultrasound recommended if not previously evaluated.
Minimal nonacute sinusitis.
#Concern is for TIA vs CVA following outpatient cardiac catheterization
-tele monitoring
-Neuro and Cards consult appreciated
-neuro-checks
-MRI brain pending
-continue aspirin
-Neuro discussed starting Plavix once daily in not contraindicated
-aspirin 81 mg daily
-lipitor 80 mg nightly
-monitor groin site
#HTN
-monitor BP
-cont home meds
#DM
-cont home DM med
-patient on ga
-SSI
#HLD
-zetia
-rosalia have to discuss in am adding statin per Neuro recs(unclear if reason not currently on statin txt and will hold off for now pending Cards cx)
#Hypomag 1.5
-replete Mg 2 gram IV tonight
- am labs
#K 3.6
-replete to 4.0 w KCl 20 meq tonight
# CAD s/p stents an CABG at [facility] 3 years ago
#Incidental finding on scan-small thyroid nodule-likely benign
-check TSH
-morning team coming on will discuss outpatient followup with US for this small lesion
DVT proph-PCDs
Full Code
[2024-02-26 18:48] LABS: % Basophils 0.3 % (0-2); % Eosinophils 0.3 % (0-6); % Immature Granulocytes 0.5 % (0-0.5); % Lymphocytes 13.4 % (20.5-51.1); % Monocytes 5.1 % (1.7-9.3); % Neutrophils 80.4 % (42.2-75.2); Absolute Lymphocytes 0.8 10^3/uL (1.2-3.4); Absolute Monocytes 0.3 10^3/uL (0.1-0.6); Hematocrit 33.3 % (39.0-52.0); Hemoglobin 11.4 g/dL (13.0-18.0); Mean Corp Hgb Conc. 34.2 g/dL (33.0-37.0); Mean Corpuscular Hgb 29.2 pg (27.0-31.0); Mean Corpuscular Volume 85.4 fL (80.0-94.0); Mean Platelet Volume 9.6 fL (7.4-10.4); Nucleated Red Blood Cells % 0 % (-); Platelet Count 253 10^3/uL (130-400); Red Cell Dist. Width 13.2 % (11.5-14.5); White Blood Cell Count 6.3 10^3/uL (4.8-10.8)
[2024-02-26 18:59] LABS: ALT (SGPT) 32 U/L (0-50); AST (SGOT) 36 U/L (17-59); Albumin 3.8 g/dl (3.5-5.0); Alkaline Phosphatase 80 U/L (38-126); Blood Urea Nitrogen 17 mg/dl (9-20); Calcium 8.3 mg/dl (8.4-10.2); Carbon Dioxide 21 mmol/L (22-30); Chloride 105 mmol/L (98-107); Estimated Creatinine Clearance > 125 ml/min; Glucose 159 mg/dl (70-99); Magnesium 1.5 mg/dl (1.6-2.3); Potassium 3.6 mmol/L (3.5-5.1); Sodium 139 mmol/L (135-145); Total Bilirubin 0.5 mg/dl (0.2-1.3); eGFR > 60.00
[2024-02-26] MEDS: LOPRESSOR 100 MG PO (20:28)
[2024-02-26] MEDS: KCL 20 MEQ PO (20:45)
[2024-02-26] MEDS: MAGNESIUM SULFATE 50 IV (20:45)
[2024-02-26] MEDS: ZETIA 10 MG PO (21:07)
[2024-02-26 21:40] LABS: Glucose - Point of Care 222 mg/dl (70-99)
[2024-02-27] VITALS (9 sets, daily range): BP systolic 121–153; BP diastolic 67–80; PULSE 71; O2SAT 98
[2024-02-27 05:15] LABS: Hematocrit 35.1 % (39.0-52.0); Hemoglobin 12.1 g/dL (13.0-18.0); Mean Corp Hgb Conc. 34.5 g/dL (33.0-37.0); Mean Corpuscular Volume 87.1 fL (80.0-94.0); Mean Platelet Volume 9.5 fL (7.4-10.4); Platelet Count 259 10^3/uL (130-400); Red Blood Cell Count 4.03 10^6/uL (4.70-6.10); Red Cell Dist. Width 13.2 % (11.5-14.5); White Blood Cell Count 4.7 10^3/uL (4.8-10.8)
[2024-02-27 05:40] LABS: Blood Urea Nitrogen 16 mg/dl (9-20); Calcium 9.3 mg/dl (8.4-10.2); Carbon Dioxide 22 mmol/L (22-30); Chloride 105 mmol/L (98-107); Estimated Creatinine Clearance > 125 ml/min; Glucose 103 mg/dl (70-99); Magnesium 2.2 mg/dl (1.6-2.3); Potassium 4.3 mmol/L (3.5-5.1); Sodium 143 mmol/L (135-145); eGFR > 60.00
[2024-02-27 06:08] LABS: TSH 0.57 uIU/ml (0.47-4.68)
[2024-02-27 07:18] LABS: Glucose - Point of Care 124 mg/dl (70-99)
--- NOTE | 2024-02-27 07:41 | CON.CAR ---
Consultation
Consultation Request
Date/Time Consultation Requested: February 26, 2024
Date/Time Consultation Performed: February 27, 2024
Requesting Provider: Hospitalist
Performing Provider: Andrew
Reason for Consultation: Neurologic symptoms post left heart catheterization
Medical History
-
Chief Complaint: Neurologic symptoms post left heart catheterization
History of Present Illness:
53-year-old gentleman with past medical history of hypertension, hyperlipidemia, type 2 diabetes mellitus, [id number], coronary artery disease status post RCA stents in 2016 with subsequent need for coronary artery bypass graft at [facility] in July 2021 with GALVEZ to LAD, saphenous vein graft to OM and distal RCA who postoperatively especially going through cardiac rehab had ongoing episodes of chest discomfort with some typical and atypical features. Nuclear stress test was
obtained which showed a reversible defect in basal to mid anteroseptal dolan concerning for ischemia and thus he now presents for elective coronary angiography. He had undergone heart catheterization in 2022 but significant baseline CAD with no
obvious culprit and patent grafts. Over the last couple of months he has been having recurrent chest discomfort with some atypical and typical features with intermittent shortness of breath, not always exertional in nature. He played baseball last
night with no limitations. He had a repeat nuclear stress test which showed stable findings but given ongoing symptoms he is now referred for a left heart catheterization. He had been taken off amlodipine which was started after 2022 heart
catheterization and has now resumed starting yesterday.
Post catheterization he was noted to have some transient visual symptoms with improved with IV fluids and then developed headache nausea and left face and left upper extremity sensory issues. He was evaluated by neurology who recommended DAPT
therapy and CT scan did not demonstrate any large vessel occlusion. He is for MRI today. When seen this morning he tells me he has no further neurologic symptoms. He was evaluated by neurology post procedure.
Past Medical History
Past Medical History: CAD, HTN, Hypercholesterolemia and NIDDM
Past Surgical History: Cardiac
Social History
Tobacco: Former Smoker
Alcohol: None
Drug: None
Personal: Other
Living: With Family
Employment: Other
Family History
Family History: Reviewed & Not Pertinent
Allergies / Home Medications
Allergy/AdvReac Type Severity Reaction Status Date / Time
No Known Allergies Allergy Verified 02/08/24 15:55
�Medication �Instructions �Recorded �Confirmed �Type
atorvastatin 80 mg tablet 80 mg PO QPM ##30 10/14/16 02/26/24 Rx
metformin 500 mg tablet 1,000 mg PO BID@0800,1700 08/19/19 02/26/24 History
multivitamin (One Daily 1 ea PO DAILY 08/19/19 02/26/24 History
Multivitamin tablet)
acetaminophen 325 mg tablet 650 mg PO Q4H PRN shoulder pain 04/09/22 02/26/24 History
(Tylenol)
aspirin 81 mg tablet,delayed 81 mg PO DAILY 04/09/22 02/26/24 History
release
ezetimibe 10 mg tablet (Zetia) 10 mg PO QPM 04/09/22 02/26/24 History
Vitamin D3 1 tab PO DAILY 02/26/24 02/26/24 History
amlodipine 2.5 mg tablet 2.5 mg PO DAILY 02/26/24 02/26/24 History
empagliflozin 10 mg tablet 10 mg PO DAILY 02/26/24 02/26/24 History
(Jardiance)
furosemide 20 mg tablet (Lasix) 20 mg PO DAILY #90 tabs 02/26/24 Rx
lisinopril 5 mg tablet 5 mg PO DAILY 02/26/24 02/26/24 History
magnesium 1 tab PO DAILY 02/26/24 02/26/24 History
metoprolol tartrate 100 mg tablet 100 mg PO BID 02/26/24 02/26/24 History
omeprazole 20 mg tablet,delayed 20 mg PO DAILY 02/26/24 02/26/24 History
release
Review of Systems
-
History Source: Patient
All other systems: Negative unless noted
Neurological: Headache and Numbness
Physical Exam
Vital Signs
Temp Pulse Resp BP Pulse Ox
98.5 F 74 18 128/73 98
02/27/24 03:20 02/27/24 03:20 02/27/24 03:20 02/27/24 03:20 02/27/24 03:20
Lab Results
02/27/24 04:48
02/27/24 04:48
Physical Exam
General: Well Developed and Well Nourished
HEENT: Normocephalic and Anicteric
Respiratory: Clear
Cardiac: S1/S2 and Regular Rhythm
Breast: Deferred by me
GI: Soft, Non Tender and Non Distended
Rectal: Deferred by Provider
Musculoskeletal: No Clubbing, No Cyanosis and No Edema
Skin: Warm and Dry
Neuro: Awake, Alert, Oriented, No Motor Deficits and Nonfocal/Grossly Intact
Hematologic/Lymphatic: No Lymphadenopathy
Psych: Calm
Impression / Plan
-
History: Patient is a 53-year-old gentleman with past medical history of hypertension, hyperlipidemia, type 2 diabetes mellitus, [id number], coronary artery disease status post RCA stents in 2016 with subsequent need for coronary artery
bypass graft at [facility] in July 2021 with GALVEZ to LAD, saphenous vein graft to OM and distal RCA who postoperatively especially going through cardiac rehab had ongoing episodes of chest discomfort with some typical and atypical features.
Nuclear stress test was obtained which showed a reversible defect in basal to mid anteroseptal dolan concerning for ischemia and thus he now presents for elective coronary angiography. He had undergone heart catheterization in 2022 but significant
baseline CAD with no obvious culprit and patent grafts. Over the last couple of months he has been having recurrent chest discomfort with some atypical and typical features with intermittent shortness of breath, not always exertional in nature. He
played baseball last night with no limitations. He had a repeat nuclear stress test which showed stable findings but given ongoing symptoms he is now referred for a left heart catheterization. He had been taken off amlodipine which was started
after 2023 heart catheterization and has now resumed starting yesterday.
Impression:
History of coronary artery bypass surgery
Prior history of coronary artery stent
Status post left heart catheterization on 02/26/2024 demonstrating severe [place] disease and bypass anatomy see separate cath report
Neurologic symptoms post catheterization
History of type 2 diabetes
History of coronary artery disease
History of hypertension
History of hyperlipidemia
Recommendations:
Agree with neurology's recommendations for dual antiplatelet therapy with aspirin and Plavix
Agree with MRI to characterize any post catheterization infarct
Medical management of coronary artery disease as you are
Thankfully he is feeling back to his baseline this morning and after testing I have no objection to discharge depending upon MRI findings and neurologic interpretation
We will follow with you while hospitalized
Data Reviewed
-
EKG: Tracing Personally Visualized and interpreted
CT Scan: Image Personally Visualized and interpreted
Labs: Labs Reviewed by me
Old Records: Reviewed
--- NOTE | 2024-02-27 07:45 | W.PN.HOSP.TC ---
Today's Communication/Plan
-
see bold
Assessment / Plan
Assessment / Plan
#Concern is for TIA vs CVA following outpatient cardiac catheterization
Appreciate neurology input, continue aspirin 81 mg daily, add Plavix for 21 days
LDL 74, A1C 7.9
For brain MRI today
Likely can be discharged afterwards
#HTN
-monitor BP
-cont home meds
#DM
-cont home DM med
-patient on
-SSI
#HLD
-zetia & lipitor
-LDL 74
#Hypomag
Repleted and resolved
# CAD s/p stents an CABG at [facility] 3 years ago
#Incidental finding on scan-small thyroid nodule-likely benign
-TSH nl
-outpatient followup with US for this small lesion
DVT proph-SCDs
Full Code
Total time spent to see the patient on the floor, examine the patient, review data and lab results, discuss treatment plan with patient, nursing staff around 45 minutes.
Physical Exam
General: No acute distress
HEENT: Normocephalic, Atraumatic, EOMI, MMM
Respiratory: Clear to Auscultation bilaterally
Cardiac: Normal S1/S2, Regular Rate and Rhythm
GI: Soft, Nontender, Nondistended, Normal Bowel Sounds
Extremities: No Clubbing, Cyanosis, or Edema
Neuro: Nonfocal/Grossly Intact
Psych: Calm, Cooperative
Derm: No Visible lesions
Anticipated Discharge: Today
Subjective/Interval History
-
Date of Service: February 27, 2024
No more recurrence of left arm numbness or facial numbness. No vision changes. No headache. No dysphagia. No focal weakness. No fever, no vomiting.
Objective Data
-
Labs:
Laboratory Results
02/27/24
04:48
WBC 4.7 L
Hgb 12.1 L
Hct 35.1 L
Plt Count 259
Sodium 143
Potassium 4.3
Chloride 105
Carbon Dioxide 22
BUN 16
Creatinine 0.8
Glucose 103 H
Calcium 9.3
Vital Signs:
Vital Signs
Temp Pulse Resp BP Pulse Ox
98.5 F 74 18 128/73 98
02/27/24 03:20 02/27/24 03:20 02/27/24 03:20 02/27/24 03:20 02/27/24 03:20
I&O
02/26/24 02/27/24 02/28/24
06:59 06:59 06:59
Intake Total 1120 / 1120
Balance 1120 / 1120
[2024-02-27] MEDS: LOPRESSOR 100 MG PO ×2 (08:23→20:13)
[2024-02-27] MEDS: ASPIR LOW (ENTERIC COATED) 81 MG PO (08:23)
[2024-02-27] MEDS: ZESTRIL 5 MG PO (08:23)
[2024-02-27] MEDS: NOVOLOG FLEXPEN-LOW RESISTANCE SC ×3 (08:23→16:56)
[2024-02-27] MEDS: FARXIGA 10 MG PO (08:23)
[2024-02-27] MEDS: PROTONIX 40 MG PO (08:23)
[2024-02-27] MEDS: NORVASC 2.5 MG PO (08:23)
[2024-02-27 08:39] LABS: Glycohemoglobin (HgbA1c) 7.9 % (4.0-5.6)
[2024-02-27 09:35] LABS: HDL Cholesterol 26 mg/dl; LDL Cholesterol, Calculated 74 mg/dl; Total Cholesterol 117 mg/dl (50-199); Triglyceride 88 mg/dl (10-149); Very Low Density Lipoprotein 17 mg/dl (0-30)
[2024-02-27 11:36] LABS: Glucose - Point of Care 129 mg/dl (70-99)
--- NOTE | 2024-02-27 12:12 | W.PN.NEURO.1 ---
Today's Communication / Plan
-
.
Subjective/Objective
Subjective Data
Date of Service: February 27, 2024
Mr. Smith reports no new neurological symptoms or headache.
Normotensive and afebrile in AM.
HbA1C 7.9, LDL-74.
CTA head/neck-no hemodynamically significant stenosis.
Brain MRI-pending.
PMH: CAD, HTN, DLP, Apolipoprotein E deficiency , DM, obesity, GERD, vit D deficiency
PSH:CABG. PTCI
FH: sister-migraine
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 Drinks alcohol several times per week.
All:NKDA
ROS: positive for transient visual and sensory symptoms. Positive for headache. Positive intermittent chest pain and palpitations
VS: 142/80, 83.
General: Well developed. In no acute distress.
Cardio: Regular rate and rhythm without murmur. Extremities are without cyanosis or edema.
Neuro:
Mental Status: Alert, oriented to person, place, and date. Normal attention and recall. Good fund of knowledge. Follows complex requests across the midline. Comprehension, naming, and repetition intact.
Cranial Nerves: . Pupils are equally round and reactive to light. EOMs full. Visual pandya full to confrontation. No ptosis. No nystagmus. V1-V3 intact to light touch and pinprick bilaterally, symmetric. Face symmetric. Normal hearing AU.
The palate elevated well. SCMs and traps 5/5. Tongue midline. No dysarthria.
Motor: Normal bulk and tone. No pronator or arm drift. Strength 5/5 throughout. No clonus. Normal fine finger movements. No pronator or leg drift.
Sensory: No extinction to DSS
Coordination: No dysmetria or tremor.
Gait: deferred
Assessment and Plan:
I. TIA
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
III. CAD
-Continue Telemetry monitoring.
-Continue ASA 81 mg Qd
-Plavix 75 mg for 21 days
-Continue ASA 81mg QD, Lipitor 80 mg QHS.
-Brain MRI wo sanjuanita
-DVT prophylaxis.
I personally reviewed all radiology and labs along with past medical records pertinent to current medical problems. Total time spent in patient care is 38 minutes.
Thank you for allowing us to participate in the care of this patient. We will continue to follow. Please do not hesitate to contact us with any questions or concerns.
Objective Data
Vital Signs
Temp Pulse Resp BP Pulse Ox
36.7 C 64 18 122/67 96
02/27/24 11:00 02/27/24 11:00 02/27/24 11:00 02/27/24 11:00 02/27/24 11:00
Lab Results
02/27/24 04:48
02/27/24 04:48
Sodium 143 mmol/L (135-145) 02/27/24 04:48
Potassium 4.3 mmol/L (3.5-5.1) 02/27/24 04:48
BUN 16 mg/dl (9-20) 02/27/24 04:48
Glucose 103 mg/dl (70-99) H 02/27/24 04:48
Calcium 9.3 mg/dl (8.4-10.2) 02/27/24 04:48
LDL Cholesterol, Calc Cancelled 02/27/24 08:32
Patient Allergies
No Known Allergies Allergy (Verified 02/08/24 15:55)
Vital Signs and Labs
-
Vital Signs and Labs:
Vital Signs
Temp Pulse Resp BP Pulse Ox
36.7 C 64 18 122/67 96
02/27/24 11:00 02/27/24 11:00 02/27/24 11:00 02/27/24 11:00 02/27/24 11:00
Lab Results
02/27/24 04:48
02/27/24 04:48
Sodium 143 mmol/L (135-145) 02/27/24 04:48
Potassium 4.3 mmol/L (3.5-5.1) 02/27/24 04:48
BUN 16 mg/dl (9-20) 02/27/24 04:48
Glucose 103 mg/dl (70-99) H 02/27/24 04:48
Calcium 9.3 mg/dl (8.4-10.2) 02/27/24 04:48
LDL Cholesterol, Calc Cancelled 02/27/24 08:32
Medications
-
Medications:
Generic Name Dose Route Start Last Admin
Trade Name Freq PRN Reason Stop Dose Admin
Acetaminophen 650 mg 02/26/24 20:21
Acetaminophen 650 Mg Rectal Suppository RECTAL 03/25/24 20:20
Q4HPRN PRN
BLANCO, mild pain, or temp >100.4F
Acetaminophen 650 mg 02/26/24 20:21
Acetaminophen 325 Mg Tablet PO 03/25/24 20:20
Q4HPRN PRN
BLANCO, mild pain, or temp >100.4F
Amlodipine Besylate 2.5 mg 02/27/24 08:00 02/27/24 08:23
Amlodipine 2.5 Mg Tablet PO 03/26/24 07:59 2.5 mg
DAILY CATIE Administration
Aspirin 81 mg 02/27/24 08:00 02/27/24 08:23
Aspirin 81 Mg (Enteric Coated) Tablet PO 03/26/24 07:59 81 mg
DAILY CATIE Administration
Calcium Gluconate 1,000 mg 02/26/24 20:21
Calcium Gluconate 10% (100 Mg/Ml) 10 Ml Vial IV 03/25/24 20:20
PRN PRN
mag toxicity or resp rate <12
Dapagliflozin 10 mg 02/27/24 08:00 02/27/24 08:23
Dapagliflozin (Farxiga) 10 Mg Tablet PO 03/26/24 07:59 10 mg
DAILY CATIE Administration
Dextrose 12.5 grams 02/26/24 20:53
Dextrose 50% (0.5 Grams/Ml) 50 Ml Syringe IV 03/25/24 20:52
[id number] PRN
hypoglycemia
Protocol
Ezetimibe 10 mg 02/26/24 22:00 02/26/24 21:07
Ezetimibe (Zetia) 10 Mg Tablet PO 03/25/24 21:59 10 mg
HS CATIE Administration
Glucagon 1 mg 02/26/24 20:53
Glucagon 1 Mg Vial IM 03/25/24 20:52
PRN PRN
hypoglycemia
Protocol
Insulin Aspart 0 units 02/27/24 07:30 02/27/24 11:50
Insulin Aspart Low Resistance 300 Units/3 Ml Pen.Injctr SC 03/26/24 07:29 Not Given
AC CATIE
Protocol
Lisinopril 5 mg 02/27/24 08:00 02/27/24 08:23
Lisinopril 5 Mg Tablet PO 03/26/24 07:59 5 mg
DAILY CATIE Administration
Metoprolol Tartrate 100 mg 02/26/24 20:00 02/27/24 08:23
Metoprolol 100 Mg Regular Release Tablet PO 03/25/24 19:59 100 mg
BID CATIE Administration
Pantoprazole Sodium 40 mg 02/27/24 08:00 02/27/24 08:23
Pantoprazole 40 Mg Delayed Release Tablet PO 03/26/24 07:59 40 mg
DAILY CATIE Administration
Sodium Chloride 0 flush 02/26/24 18:00
Sodium Chloride 0.9% (Flush) Syringe IV 03/25/24 17:59
PER PROTOCOL CATIE
Home Medications
-
Home Medications
atorvastatin 80 mg tablet 80 mg PO QPM ##30 10/14/16
metformin 500 mg tablet 1,000 mg PO BID@0800,1700 08/19/19
multivitamin (One Daily Multivitamin tablet) 1 ea PO DAILY 08/19/19
acetaminophen 325 mg tablet (Tylenol) 650 mg PO Q4H PRN shoulder pain 04/09/22
aspirin 81 mg tablet,delayed release 81 mg PO DAILY 04/09/22
ezetimibe 10 mg tablet (Zetia) 10 mg PO QPM 04/09/22
Vitamin D3 1 tab PO DAILY 02/26/24
amlodipine 2.5 mg tablet 2.5 mg PO DAILY 02/26/24
empagliflozin 10 mg tablet (Jardiance) 10 mg PO DAILY 02/26/24
furosemide 20 mg tablet (Lasix) 20 mg PO DAILY #90 tabs 02/26/24
lisinopril 5 mg tablet 5 mg PO DAILY 02/26/24
magnesium 1 tab PO DAILY 02/26/24
metoprolol tartrate 100 mg tablet 100 mg PO BID 02/26/24
omeprazole 20 mg tablet,delayed release 20 mg PO DAILY 02/26/24
--- NOTE | 2024-02-27 13:18 | PTOTSP ---
Speech Pathology
Clinical Swallow Evaluation
53M admitted for chest pain, lt facial numbness, and 'cloudy vision' s/p diagnostic left cardiac cath on 02/25 p/w clinical s/s of a functional oropharyngeal swallow. No overt concerns for aspiration at this time. [employer]OR [employer] service to follow up only if
brain MRI positive for acute infarct.
Recommend:
1. Regular textures (IDDSI 7), thin liquids (IDDSI 0)
2. Meds as tolerated
3. Aspiration precautions
4. INSPECTOR TOYS service to f/u only IF MRI is positive for acute infarct
--- NOTE | 2024-02-27 14:16 | CM ---
Addendum entered by Kimberlee Adhikari 02/27/24 16:13:
No dc today
Original Note:
CM met with spouse bedside as pt off unit in MRI
They typically reside in a [facility] in [place]
On dc, will be going to a rancher in [place] for recovery
Pt is independent at baseline, no DMEs
PCP- [facility] [place]
PCP- Walter Sofia
Discharge Disposition- home, no dc needs
--- NOTE | 2024-02-27 15:18 | PTOTSP ---
Pt is indep in ADLs, functional mobility, functional transfers. Vision is back to baseline and pt reports numbness/tingling of LUE and face now resolved. No impairments noted. No skilled acute OT needs. Will sign off. Reconsult if functional
status declines during hospital stay.
[2024-02-27] MEDS: PLAVIX 75 MG PO (16:28)
--- NOTE | 2024-02-27 16:34 | PTOTSP ---
Patient demonstrates I with all functional mobility and no deficits. At this time patient is I and does not have any skilled needs. will sign off. If situation changes, please reconsult.
[2024-02-27 16:45] LABS: Glucose - Point of Care 118 mg/dl (70-99)
[2024-02-27] MEDS: ZETIA 10 MG PO (21:15)
[2024-02-27 21:24] LABS: Glucose - Point of Care 125 mg/dl (70-99)
[2024-02-28 03:24] VITALS: BP 127/73
[2024-02-28 08:19] LABS: Glucose - Point of Care 123 mg/dl (70-99)
[2024-02-28] MEDS: NOVOLOG FLEXPEN-LOW RESISTANCE SC ×2 (08:26→17:53)
[2024-02-28] MEDS: NORVASC 2.5 MG PO (08:26)
[2024-02-28] MEDS: ZESTRIL 5 MG PO (08:26)
[2024-02-28] MEDS: PROTONIX 40 MG PO (08:26)
[2024-02-28] MEDS: LOPRESSOR 100 MG PO ×2 (08:26→21:00)
[2024-02-28] MEDS: ASPIR LOW (ENTERIC COATED) 81 MG PO (08:26)
[2024-02-28] MEDS: PLAVIX 75 MG PO (08:26)
[2024-02-28] MEDS: FARXIGA 10 MG PO (08:26)
--- NOTE | 2024-02-28 08:41 | W.PN.HOSP.TC ---
Today's Communication/Plan
-
For echocardiogram tomorrow
Assessment / Plan
Assessment / Plan
#Acute to subacute CVA
#Left face/left arm numbness/paresthesia following outpatient cardiac catheterization
Appreciate neurology input, continue aspirin 81 mg daily, started Plavix for 21 days
LDL 74, A1C 7.9
For echocardiogram tomorrow, likely can be discharged afterwards
#HTN
-monitor BP
-cont home meds
#DM
-cont home DM med
-patient on ga
-SSI
#HLD
-zetia & lipitor
-LDL 74
#Hypomag
Repleted and resolved
# CAD s/p stents an CABG at [facility] 3 years ago
#Incidental finding on scan-small thyroid nodule-likely benign
-TSH nl
-Rec outpatient US for this small lesion
DVT proph-subcu Lovenox
Full Code
Total time spent to see the patient on the floor, examine the patient, review data and lab results, discuss treatment plan with patient, nursing staff around 40 minutes.
Physical Exam
General: No acute distress
HEENT: Normocephalic, Atraumatic, EOMI, MMM
Respiratory: Clear to Auscultation bilaterally
Cardiac: Normal S1/S2, Regular Rate and Rhythm
GI: Soft, Nontender, Nondistended, Normal Bowel Sounds
Extremities: No Clubbing, Cyanosis, or Edema
Neuro: Nonfocal/Grossly Intact
Psych: Calm, Cooperative
Derm: No Visible lesions
Anticipated Discharge: Within 24 hours
Subjective/Interval History
-
Date of Service: February 28, 2024
Patient reports intermittent numbness/paresthesias of left face and left arm. No dysphagia, no weakness, no dysarthria. No fever, no vomiting.
Objective Data
-
Vital Signs:
Vital Signs
Temp Pulse Resp BP Pulse Ox
97.9 F 72 18 127/73 97
02/28/24 03:24 02/28/24 03:24 02/28/24 03:24 02/28/24 03:24 02/28/24 03:24
I&O
02/27/24 02/28/24 02/29/24
06:59 06:59 06:59
Intake Total 1120 / 1120 1540 / 1540
Balance 1120 / 1120 1540 / 1540
[2024-02-28 08:51] VITALS: BP 130/73
--- NOTE | 2024-02-28 09:46 | W.PN.CARDCBS ---
Today's Communication / Plan
-
Continue with neurology's recommendations for dual antiplatelet therapy with aspirin and Plavix
Brain MRI completed. Neuro reviewing
Back to baseline with regards to physical activity
paresthesias have resolved
Echo is pending
Cont med therapy of stable CAD by recent cath
Resume lipitor 80 daily. Cont Zetia. LDL 74 Feb 27 2024. LDL goal is less than 70.
Resume lasix 20 mg daily, diuretics that were started given elevated filling pressures on recent cath.
Groin dressing can come off.
Outpt cardiac follow up.
Discussed with nursing and with at bedside.
Impression / Plan
-
.
Impression:
History of coronary artery bypass surgery
Prior history of coronary artery stent
Status post left heart catheterization on 02/26/2024 demonstrating severe [place] disease and bypass anatomy see separate cath report
Neurologic symptoms post catheterization, acute to subacute infarct by brain MRI Feb 27 2024
History of type 2 diabetes
History of coronary artery disease
History of hypertension
History of hyperlipidemia
Cath Feb 26 2024:
HEMODYNAMICS : (mmHg)
AO (s/d) : 141/78
LV (s/d) : 140/9
LVEDP : 21
CORONARY FINDINGS:
DOMINANCE: Right
LEFT MAIN:� Large caliber vessel that gives rise to the left anterior descending and left circumflex branches. The left main has diffuse 20-30% stenosis.
LEFT ANTERIOR DESCENDING:� Large caliber vessel that wraps around the cardiac apex. The LAD is severely calcified and has proximal diffuse 20-30% stenosis and there is a known 100% chronic total occlusion in the mid-vessel. The mid-LAD is grafted by
the GALVEZ and has mild disease as it wraps around the apex.
LEFT CIRCUMFLEX:� Large caliber vessel that gives off large caliber first major obtuse marginal (OM) and a moderate caliber second OM as it courses along the atrio-ventricular (AV) groove.� The mid-LCx right before the take-off of the OM1 has a 80%
stenosis. The OM1 has competitive flow from the SVG graft. The OM2 has a mid-vessel 70% stenosis.
RIGHT CORONARY ARTERY:� Large caliber dominant severely calcified vessel that gives rise to the posterior descending artery (RPDA) and postero-lateral ventricular (RPLV) branches distally. The Mid-RCA is previously stented with severe in-stent
restenosis with up to 70-80% stenosis. The SVG to the RPDA is patent with CHETNA 3 flow but is small in caliber, almost with an atretic appearance but remains patent and stable compared to last heart catheterization in 2022.
GRAFT ANGIOGRAPHY:
GALVEZ to LAD: Widely patent.
SVG to RPDA: The SVG to the RPDA is patent but is small in caliber and with CHETNA 3 flow but has a diffusely atretic appearance.
SVG to OM1: Widely patent, with retrograde filling of the OM2.
CONCLUSIONS
1. Severe [place] coronary artery disease, but overall stable compared to heart catheterization from 2022.
2. All grafts are patent similar to heart catheterization 2022.
3. Elevated LVEDP at 21 mmHg.
RECOMMENDATIONS
1. Given no obvious culprit with mostly atypical features to his chest pain, plan for optimization of medical therapy with close outpatient follow-up. We will also initiate low-dose diuretic to improve filling pressures given intermittent dyspnea
on exertion.
2. Wean radial band per protocol.
3. Aggressive management of cardiovascular risk factors
Brain MRI Feb 27 2024:
-Three small focal areas of abnormal restricted diffusion as described, compatible with scattered foci of acute to subacute infarction.
-Mild diffuse atrophy.
-Mild to moderate T2 and FLAIR white matter hyperintensities, commonly seen with aging, slightly more numerous than usually expected in a 53-year-old. These are nonspecific although usually attributed to small vessel ischemic disease.
-Small foci of decreased T2 gradient echo and susceptibility weighted signal as described. Suggest small foci of old microhemorrhage, exact etiology uncertain. Foci of old microhemorrhage are most commonly seen in association with hypertensive
angiopathy and amyloid angiopathy
Plan:
Continue with neurology's recommendations for dual antiplatelet therapy with aspirin and Plavix
Brain MRI completed. Neuro reviewing
Back to baseline with regards to physical activity
Paresthesias have resolved
Echo is pending
Cont med therapy of stable CAD by recent cath
Resume lipitor 80 daily. Cont Zetia. LDL 74 Feb 27 2024. LDL goal is less than 70.
Resume lasix 20 mg daily, diuretics that were started given elevated filling pressures on recent cath.
Groin dressing can come off.
Outpt cardiac follow up.
Discussed with nursing and with at bedside.
History of Present Illness: Post catheterization he was noted to have some transient visual symptoms with improved with IV fluids and then developed headache nausea and left face and left upper extremity sensory issues. He was evaluated by
neurology who recommended DAPT therapy and CT scan did not demonstrate any large vessel occlusion. He is for MRI today. When seen this morning he tells me he has no further neurologic symptoms. He was evaluated by neurology post procedure.
HPI/cath indication: Patient is a 53-year-old gentleman with past medical history of hypertension, hyperlipidemia, type 2 diabetes mellitus, [id number], coronary artery disease status post RCA stents in 2016 with subsequent need for
coronary artery bypass graft at [facility] in July 2021 with GALVEZ to LAD, saphenous vein graft to OM and distal RCA who postoperatively especially going through cardiac rehab had ongoing episodes of chest discomfort with some typical and
atypical features. Nuclear stress test was obtained which showed a reversible defect in basal to mid anteroseptal dolan concerning for ischemia and thus he now presents for elective coronary angiography. He had undergone heart catheterization in
2022 but significant baseline CAD with no obvious culprit and patent grafts. Over the last couple of months he has been having recurrent chest discomfort with some atypical and typical features with intermittent shortness of breath, not always
exertional in nature. He played baseball last night with no limitations. He had a repeat nuclear stress test which showed stable findings but given ongoing symptoms he is now referred for a left heart catheterization. He had been taken off
amlodipine which was started after 2022 heart catheterization and has now resumed starting yesterday.
Progress Note - Roll Weigher
Subjective
Date of Service: February 28, 2024
Pt seen and examined. No complaints. No chest pain or shortness of breath.
Objective
Labs:
02/27/24 04:48
02/27/24 04:48
Labs
Hgb 12.1 g/dL (13.0-18.0) L 02/27/24 04:48
Hct 35.1 % (39.0-52.0) L 02/27/24 04:48
Plt Count 259 10^3/uL (130-400) 02/27/24 04:48
Sodium 143 mmol/L (135-145) 02/27/24 04:48
Potassium 4.3 mmol/L (3.5-5.1) 02/27/24 04:48
BUN 16 mg/dl (9-20) 02/27/24 04:48
Creatinine 0.8 mg/dL (0.7-1.3) 02/27/24 04:48
Glucose 103 mg/dl (70-99) H 02/27/24 04:48
Vital Signs and I&O:
Vital Signs
Temp Pulse Resp BP Pulse Ox
98.6 F 63 16 130/73 98
02/28/24 08:51 02/28/24 08:51 02/28/24 08:51 02/28/24 08:51 02/28/24 08:51
Vital Signs
Temp Pulse Resp BP Pulse Ox
98.6 F 63 16 130/73 98
02/28/24 08:51 02/28/24 08:51 02/28/24 08:51 02/28/24 08:51 02/28/24 08:51
Intake & Output
02/26/24 02/27/24 02/28/24 02/29/24
06:59 06:59 06:59 06:59
Intake Total 1120 / 1120 1540 / 1540
Balance 1119 1540 / 1540
Physical Exam
Physical Exam
General: No acute distress, AAOX3
Neck: Negative JVD
Heart: Regular, Negative S3 positive S1/S2, Negative S4, No murmur
Lungs: CTA b/l, negative wheezes/rales/rhonchi
Abd: Positive BS, NT/ND, neg rebound/rigidity/guarding
Ext: Negative cyanosis/clubbing/edema
Neuro: nonfocal
[2024-02-28 12:00] VITALS: BP 133/83
[2024-02-28] MEDS: LASIX 20 MG PO (12:14)
[2024-02-28 12:27] LABS: Glucose - Point of Care 222 mg/dl (70-99)
--- NOTE | 2024-02-28 12:41 | W.PN.NEURO.1 ---
Today's Communication / Plan
-
.
Subjective/Objective
Subjective Data
Date of Service: February 28, 2024
Mr. Smith reports no complaints.
BP has improved. No recurrent neurological symptoms are reported.
Brain MRI wo sanjuanita-biparietal and left superior frontal lobe punctuate acute to subacute infarction; mild diffuse atrophy; mild to moderate T2 and FLAIR white matter hyperintensities and chronic microhemorrhages in the left parietal lobe and likely
right globus pallidus.
TTE-pending.
HbA1C 7.9, LDL-74.
CTA head/neck-no hemodynamically significant stenosis.
PMH: CAD, HTN, DLP, Apolipoprotein E deficiency , DM, obesity, GERD, vit D deficiency
PSH:CABG. PTCI
FH: sister-migraine
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 Drinks alcohol several times per week.
All:NKDA
ROS: positive for transient visual and sensory symptoms. Positive for headache. Positive intermittent chest pain and palpitations
General: Well developed. In no acute distress.
Cardio: Regular rate and rhythm without murmur. Extremities are without cyanosis or edema.
Neuro:
Mental Status: Alert, oriented to person, place, and date. Increased processing time. Good fund of knowledge. Follows complex requests across the midline. Comprehension, naming, and repetition intact.
Cranial Nerves: Pupils are equally round and reactive to light. EOMs full. Visual pandya full to confrontation. No ptosis. No nystagmus. V1-V3 intact to light touch and pinprick bilaterally, symmetric. Face symmetric. Normal hearing AU. The
palate elevated well. SCMs and traps 5/5. Tongue midline. No dysarthria.
Motor: Normal bulk and tone. No pronator or arm drift. Strength 5/5 throughout. No clonus. Normal fine finger movements. No pronator or leg drift.
Sensory: No extinction to DSS
Coordination: No dysmetria or tremor.
Gait: deferred
Assessment and Plan:
I. Acute embolic bihemispheric strokes. 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
II. Chronic cerebral microhemorrhages: hypertensive vs probable cerebral amyloid angiopathy
III. Brain atrophy
-Continue Telemetry monitoring.
-Plavix 75 mg for 21 days
-Continue ASA 81 mg QD, Lipitor 80 mg QHS.
-OP neuropsychological evaluation
-OP neurology follow up in 1-2 weeks
-DVT prophylaxis.
-The case was discussed with patient's spouse. All questions were answered.
I personally reviewed all radiology and labs along with past medical records pertinent to current medical problems. Total time spent in patient care is 40 minutes.
Thank you for allowing us to participate in the care of this patient. We will continue to follow. Please do not hesitate to contact us with any questions or concerns.
Objective Data
Vital Signs
Temp Pulse Resp BP Pulse Ox
37.0 C 63 16 130/73 98
02/28/24 08:51 02/28/24 08:51 02/28/24 08:51 02/28/24 08:51 02/28/24 08:51
Lab Results
02/27/24 04:48
02/27/24 04:48
Sodium 143 mmol/L (135-145) 02/27/24 04:48
Potassium 4.3 mmol/L (3.5-5.1) 02/27/24 04:48
BUN 16 mg/dl (9-20) 02/27/24 04:48
Glucose 103 mg/dl (70-99) H 02/27/24 04:48
Calcium 9.3 mg/dl (8.4-10.2) 02/27/24 04:48
LDL Cholesterol, Calc Cancelled 02/27/24 08:32
Patient Allergies
No Known Allergies Allergy (Verified 02/08/24 15:55)
Vital Signs and Labs
-
Vital Signs and Labs:
Vital Signs
Temp Pulse Resp BP Pulse Ox
37.0 C 63 16 130/73 98
02/28/24 08:51 02/28/24 08:51 02/28/24 08:51 02/28/24 08:51 02/28/24 08:51
Lab Results
02/27/24 04:48
02/27/24 04:48
Sodium 143 mmol/L (135-145) 02/27/24 04:48
Potassium 4.3 mmol/L (3.5-5.1) 02/27/24 04:48
BUN 16 mg/dl (9-20) 02/27/24 04:48
Glucose 103 mg/dl (70-99) H 02/27/24 04:48
Calcium 9.3 mg/dl (8.4-10.2) 02/27/24 04:48
LDL Cholesterol, Calc Cancelled 02/27/24 08:32
Medications
-
Medications:
Generic Name Dose Route Start Last Admin
Trade Name Freq PRN Reason Stop Dose Admin
Acetaminophen 650 mg 02/26/24 20:21
Acetaminophen 650 Mg Rectal Suppository RECTAL 03/25/24 20:20
Q4HPRN PRN
BLANCO, mild pain, or temp >100.4F
Acetaminophen 650 mg 02/26/24 20:21
Acetaminophen 325 Mg Tablet PO 03/25/24 20:20
Q4HPRN PRN
BLANCO, mild pain, or temp >100.4F
Amlodipine Besylate 2.5 mg 02/27/24 08:00 02/28/24 08:26
Amlodipine 2.5 Mg Tablet PO 03/26/24 07:59 2.5 mg
DAILY CATIE Administration
Aspirin 81 mg 02/27/24 08:00 02/28/24 08:26
Aspirin 81 Mg (Enteric Coated) Tablet PO 03/26/24 07:59 81 mg
DAILY CATIE Administration
Atorvastatin Calcium 80 mg 02/28/24 18:00
Atorvastatin (Lipitor) 40 Mg Tablet PO 03/27/24 17:59
QPM CATIE
Calcium Gluconate 1,000 mg 02/26/24 20:21
Calcium Gluconate 10% (100 Mg/Ml) 10 Ml Vial IV 03/25/24 20:20
PRN PRN
mag toxicity or resp rate <12
Clopidogrel Bisulfate 75 mg 02/27/24 13:00 02/28/24 08:26
Clopidogrel 75 Mg Tablet PO 03/18/24 08:01 75 mg
DAILY CATIE Administration
Dapagliflozin 10 mg 02/27/24 08:00 02/28/24 08:26
Dapagliflozin (Farxiga) 10 Mg Tablet PO 03/26/24 07:59 10 mg
DAILY CATIE Administration
Dextrose 12.5 grams 02/26/24 20:53
Dextrose 50% (0.5 Grams/Ml) 50 Ml Syringe IV 03/25/24 20:52
[id number] PRN
hypoglycemia
Protocol
Ezetimibe 10 mg 02/26/24 22:00 02/27/24 21:15
Ezetimibe (Zetia) 10 Mg Tablet PO 03/25/24 21:59 10 mg
HS CATIE Administration
Furosemide 20 mg 02/28/24 11:00 02/28/24 12:14
Furosemide 20 Mg Tablet PO 03/27/24 10:59 20 mg
DAILY CATIE Administration
Glucagon 1 mg 02/26/24 20:53
Glucagon 1 Mg Vial IM 03/25/24 20:52
PRN PRN
hypoglycemia
Protocol
Insulin Aspart 0 units 02/27/24 07:30 02/28/24 08:26
Insulin Aspart Low Resistance 300 Units/3 Ml Pen.Injctr SC 03/26/24 07:29 Not Given
AC CATIE
Protocol
Lisinopril 5 mg 02/27/24 08:00 02/28/24 08:26
Lisinopril 5 Mg Tablet PO 03/26/24 07:59 5 mg
DAILY CATIE Administration
Metoprolol Tartrate 100 mg 02/26/24 20:00 02/28/24 08:26
Metoprolol 100 Mg Regular Release Tablet PO 03/25/24 19:59 100 mg
BID CATIE Administration
Pantoprazole Sodium 40 mg 02/27/24 08:00 02/28/24 08:26
Pantoprazole 40 Mg Delayed Release Tablet PO 03/26/24 07:59 40 mg
DAILY CATIE Administration
Sodium Chloride 0 flush 02/26/24 18:00
Sodium Chloride 0.9% (Flush) Syringe IV 03/25/24 17:59
PER PROTOCOL CATIE
[2024-02-28] MEDS: NOVOLOG FLEXPEN-LOW RESISTANCE 222 UNITS SC (12:47)
--- NOTE | 2024-02-28 15:50 | PTOTSP ---
ST Acute Care Evaluation & Follow-Up
Speech, Language, & Cognitive Linguistic Evaluation:
Pt currently presents with speech, language, and cognitive linguistic parameters that are within functional limit for his age and education. No skilled services indicated at this time.
Dysphagia Tx:
Pt's oral, pharyngeal, and esophageal phases were deemed WFL - no overt s/s of penetration or aspiration noted at bedside. No skilled dysphagia services warranted.
Recommendations:
- Continue with regular solids, thin liquids, meds as tolerated.
- General aspiration precautions.
- RISK MANAGEMENT SPECIALIST to sign off - no skilled speech, language, cognition, or swallowing services deemed necessary at this time.
[2024-02-28 16:00] VITALS: BP 128/80
[2024-02-28] MEDS: LOVENOX 40 MG SC (17:11)
[2024-02-28] MEDS: LIPITOR 80 MG PO (17:12)
[2024-02-28 17:50] LABS: Glucose - Point of Care 136 mg/dl (70-99)
[2024-02-28 19:38] VITALS: BP 124/66
[2024-02-28] MEDS: ZETIA 10 MG PO (21:00)
[2024-02-28 21:20] LABS: Glucose - Point of Care 148 mg/dl (70-99)
[2024-02-28 22:44] VITALS: BP 136/63
[2024-02-29 03:42] VITALS: BP 118/71
[2024-02-29 07:23] LABS: Glucose - Point of Care 124 mg/dl (70-99)
[2024-02-29 08:00] VITALS: BP 118/68
--- NOTE | 2024-02-29 08:56 | W.PN.HOSP.TC ---
Addendum entered and electronically signed by Gilma Morales MD 02/29/24 14:17:
total DC time 40 min
Original Note:
Today's Communication/Plan
-
for echo today and likely DC after that
Assessment / Plan
Assessment / Plan
A/P:
# Acute to subacute stroke of posterior left parietal lobe
# Left face/ left arm numbness/ paresthesia following outpatient cardiac catheterization
Appreciate neurology input, continue aspirin 81 mg daily, started Plavix for 21 days
LDL 74, A1C 7.9
For echocardiogram, and likely to be discharged afterwards
# HTN
monitor BP
cont home meds
# DM
cont home DM med
patient on
SSI
# HLD
LDL 74
zetia & lipitor
# Hypomag
Repleted and resolved
# CAD s/p stents an CABG at [facility] 3 years ago
# Incidental finding on scan-small thyroid nodule-likely benign
TSH nl
Rec outpatient US for this small lesion
DVT proph-subcu Lovenox
Full Code
DW at bedside
Physical Exam
General: No acute distress
HEENT: Normocephalic, Atraumatic, EOMI, MMM
Respiratory: Clear to Auscultation bilaterally
Cardiac: Normal S1/S2, Regular Rate and Rhythm
GI: Soft, Nontender, Nondistended, Normal Bowel Sounds
Extremities: No Clubbing, Cyanosis, or Edema
Neuro: Nonfocal/Grossly Intact
Psych: Calm, Cooperative
Derm: No Visible lesions
Anticipated Discharge: Today
Subjective/Interval History
-
Date of Service: February 29, 2024
Objective Data
-
Vital Signs:
Vital Signs
Temp Pulse Resp BP Pulse Ox
37.1 C 68 18 118/68 97
02/29/24 08:00 02/29/24 08:00 02/29/24 08:00 02/29/24 08:00 02/29/24 08:00
I&O
02/28/24 02/29/24 03/01/24
06:59 06:59 06:59
Intake Total 1540 / 1540 1200 / 1200
Balance 1540 / 1540 1200 / 1200
Review of Systems
-
All other systems: Reviewed and negative
Data Reviewed
-
MRI: Report Reviewed by me
Labs: Labs Reviewed by me
--- NOTE | 2024-02-29 09:17 | W.PN.CARDCBS ---
Today's Communication / Plan
-
Stable echo
Compensated cv status
Outpt follow up
Impression / Plan
-
.
Impression:
History of coronary artery bypass surgery
Prior history of coronary artery stent
Status post left heart catheterization on 02/26/2024 demonstrating severe [place] disease and bypass anatomy see separate cath report
Neurologic symptoms post catheterization, acute to subacute infarct by brain MRI Feb 27 2024
History of type 2 diabetes
History of coronary artery disease
History of hypertension
History of hyperlipidemia
Cath Feb 26 2024:
HEMODYNAMICS : (mmHg)
AO (s/d) : 141/78
LV (s/d) : 140/9
LVEDP : 21
CORONARY FINDINGS:
DOMINANCE: Right
LEFT MAIN:� Large caliber vessel that gives rise to the left anterior descending and left circumflex branches. The left main has diffuse 20-30% stenosis.
LEFT ANTERIOR DESCENDING:� Large caliber vessel that wraps around the cardiac apex. The LAD is severely calcified and has proximal diffuse 20-30% stenosis and there is a known 100% chronic total occlusion in the mid-vessel. The mid-LAD is grafted by
the GALVEZ and has mild disease as it wraps around the apex.
LEFT CIRCUMFLEX:� Large caliber vessel that gives off large caliber first major obtuse marginal (OM) and a moderate caliber second OM as it courses along the atrio-ventricular (AV) groove.� The mid-LCx right before the take-off of the OM1 has a 80%
stenosis. The OM1 has competitive flow from the SVG graft. The OM2 has a mid-vessel 70% stenosis.
RIGHT CORONARY ARTERY:� Large caliber dominant severely calcified vessel that gives rise to the posterior descending artery (RPDA) and postero-lateral ventricular (RPLV) branches distally. The Mid-RCA is previously stented with severe in-stent
restenosis with up to 70-80% stenosis. The SVG to the RPDA is patent with CHETNA 3 flow but is small in caliber, almost with an atretic appearance but remains patent and stable compared to last heart catheterization in 2022.
GRAFT ANGIOGRAPHY:
GALVEZ to LAD: Widely patent.
SVG to RPDA: The SVG to the RPDA is patent but is small in caliber and with CHETNA 3 flow but has a diffusely atretic appearance.
SVG to OM1: Widely patent, with retrograde filling of the OM2.
CONCLUSIONS
1. Severe walker [place] coronary artery disease, but overall stable compared to heart catheterization from 2022.
2. All grafts are patent similar to heart catheterization 2022.
3. Elevated LVEDP at 21 mmHg.
RECOMMENDATIONS
1. Given no obvious culprit with mostly atypical features to his chest pain, plan for optimization of medical therapy with close outpatient follow-up. We will also initiate low-dose diuretic to improve filling pressures given intermittent dyspnea
on exertion.
2. Wean radial band per protocol.
3. Aggressive management of cardiovascular risk factors
Brain MRI Feb 27 2024:
-Three small focal areas of abnormal restricted diffusion as described, compatible with scattered foci of acute to subacute infarction.
-Mild diffuse atrophy.
-Mild to moderate T2 and FLAIR white matter hyperintensities, commonly seen with aging, slightly more numerous than usually expected in a 53-year-old. These are nonspecific although usually attributed to small vessel ischemic disease.
-Small foci of decreased T2 gradient echo and susceptibility weighted signal as described. Suggest small foci of old microhemorrhage, exact etiology uncertain. Foci of old microhemorrhage are most commonly seen in association with hypertensive
angiopathy and amyloid angiopathy
Plan:
Continue with neurology's recommendations for dual antiplatelet therapy with aspirin and Plavix
Brain MRI completed.
Back to baseline with regards to physical activity
Paresthesias have resolved
Echo is stable and was reviewed. No significant change from prior.
Cont med therapy of stable CAD by recent cath
Cont lipitor 80 daily. Cont Zetia. LDL 74 Feb 27 2024. LDL goal is less than 70.
Cont lasix 20 mg daily, diuretics that were started given elevated filling pressures on recent cath.
Check BMP in one week
Outpt cardiac follow up.
Discussed with at bedside.
History of Present Illness: Post catheterization he was noted to have some transient visual symptoms with improved with IV fluids and then developed headache nausea and left face and left upper extremity sensory issues. He was evaluated by
neurology who recommended DAPT therapy and CT scan did not demonstrate any large vessel occlusion. He is for MRI today. When seen this morning he tells me he has no further neurologic symptoms. He was evaluated by neurology post procedure.
HPI/cath indication: Patient is a 53-year-old gentleman with past medical history of hypertension, hyperlipidemia, type 2 diabetes mellitus, [id number], coronary artery disease status post RCA stents in 2016 with subsequent need for
coronary artery bypass graft at [facility] in July 2021 with GALVEZ to LAD, saphenous vein graft to OM and distal RCA who postoperatively especially going through cardiac rehab had ongoing episodes of chest discomfort with some typical and
atypical features. Nuclear stress test was obtained which showed a reversible defect in basal to mid anteroseptal dolan concerning for ischemia and thus he now presents for elective coronary angiography. He had undergone heart catheterization in
2022 but significant baseline CAD with no obvious culprit and patent grafts. Over the last couple of months he has been having recurrent chest discomfort with some atypical and typical features with intermittent shortness of breath, not always
exertional in nature. He played baseball last night with no limitations. He had a repeat nuclear stress test which showed stable findings but given ongoing symptoms he is now referred for a left heart catheterization. He had been taken off
amlodipine which was started after 2022 heart catheterization and has now resumed starting yesterday.
Progress Note - [employer]
Subjective
Date of Service: February 29, 2024
Pt seen and examined. No complaints. No chest pain or shortness of breath.
Objective
Labs:
02/27/24 04:48
02/27/24 04:48
Labs
Hgb 12.1 g/dL (13.0-18.0) L 02/27/24 04:48
Hct 35.1 % (39.0-52.0) L 02/27/24 04:48
Plt Count 259 10^3/uL (130-400) 02/27/24 04:48
Sodium 143 mmol/L (135-145) 02/27/24 04:48
Potassium 4.3 mmol/L (3.5-5.1) 02/27/24 04:48
BUN 16 mg/dl (9-20) 02/27/24 04:48
Creatinine 0.8 mg/dL (0.7-1.3) 02/27/24 04:48
Glucose 103 mg/dl (70-99) H 02/27/24 04:48
Vital Signs and I&O:
Vital Signs
Temp Pulse Resp BP Pulse Ox
98.7 F 68 18 118/68 97
02/29/24 08:00 02/29/24 08:00 02/29/24 08:00 02/29/24 08:00 02/29/24 08:00
Vital Signs
Temp Pulse Resp BP Pulse Ox
98.7 F 68 18 118/68 97
02/29/24 08:00 02/29/24 08:00 02/29/24 08:00 02/29/24 08:00 02/29/24 08:00
Intake & Output
02/27/24 02/28/24 02/29/24 03/01/24
06:59 06:59 06:59 06:59
Intake Total 1120 / 1120 1540 / 1540 1200 / 1200
Balance 1120 / 1120 1540 / 1540 1200 / 1200
Physical Exam
Physical Exam
General: No acute distress, AAOX3
Neck: Negative JVD
Heart: Regular, Negative S3 positive S1/S2, Negative S4, No murmur
Lungs: CTA b/l, negative wheezes/rales/rhonchi
Abd: Positive BS, NT/ND, neg rebound/rigidity/guarding
Ext: Negative cyanosis/clubbing/edema
Neuro: nonfocal
[2024-02-29] MEDS: PROTONIX 40 MG PO (09:29)
[2024-02-29] MEDS: NOVOLOG FLEXPEN-LOW RESISTANCE SC (09:29)
[2024-02-29] MEDS: FARXIGA 10 MG PO (09:30)
[2024-02-29] MEDS: ZESTRIL 5 MG PO (09:30)
[2024-02-29] MEDS: LOPRESSOR 100 MG PO (09:31)
[2024-02-29] MEDS: ASPIR LOW (ENTERIC COATED) 81 MG PO (09:31)
[2024-02-29] MEDS: NORVASC 2.5 MG PO (09:33)
[2024-02-29] MEDS: PLAVIX 75 MG PO (09:33)
[2024-02-29] MEDS: LASIX 20 MG PO (09:33)
--- NOTE | 2024-02-29 09:49 | CM ---
Addendum entered by Tara Mendes 02/29/24 13:03:
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
Original Note:
Chart reviewed and plan is to home when stable. No needs.
Plan; Home no needs.
[2024-02-29 11:00] VITALS: BP 134/85
[2024-02-29 11:32] LABS: Glucose - Point of Care 168 mg/dl (70-99)
[2024-02-29] MEDS: NOVOLOG FLEXPEN-LOW RESISTANCE 1 UNITS SC (11:47)
--- NOTE | 2024-02-29 14:10 | W.DCSUMMARY ---
Discharge Summary
Discharge Data
Date of Admission: 02/29/24
Date of Discharge: 02/29/24
-
Pending Results: No
Hospital Course
Principal Diagnosis:
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
Incidental finding on scan-small thyroid nodule-likely benign
Chronic Diagnoses:�
Essential hypertension
Diabetes mellitus
Hyperlipidemia
Coronary artery disease status post stents an bypass surgery at [facility]
Consultations:�
Cardiology
Neurology
Procedures:�
None
Clinical course:�
This is a 53-year-old male, with past medical history as stated above, who presented with left face and left arm numbness following outpatient cardiac catheterization.
Problem 1:
Left face/ left arm numbness/paresthesia due to acute to subacute stroke of posterior left parietal lobe.
He can continue aspirin 81 mg daily, and Plavix 75 mg daily for 21 days total.
His LDL was at 74, and A1C at 7.9%.
His echo was unrevealing: EF 50%, Mild mitral regurgitation.
Problem 2:
Incidental finding of small thyroid nodule, likely benign.
His TSH was within normal limit at 0.57.
He can follow-up with outpatient thyroid ultrasound with his PCP.
As for the rest of his medical problems, they were stable during his hospital stay.
Discharge Plan
-
Patient Disposition: Home (Routine Discharge)
Discharge Diagnosis/Procedures: Acute to subacute stroke of posterior left parietal lobe;
Cardiac cath, stable coronary artery disease;
incidental thyroid nodule
Condition: Fair
Diet: Low Cholesterol, 2 Gram Sodium and Diabetic, Carb Controlled
Driving Restrictions: No driving for 24 hours
Blood Work: BMP in 1 week with your PCP
Others Tests: Check outpatient thyroid ultrasound for the small thyroid lesion noted with your PCP
Activity Restrictions/Additional Instructions:
You have a small thyroid nodule, your thyroid hormones are normal.
Recommend an outpatient thyroid ultrasound, which can be ordered by your PCP.
Neurology recommends you to take Plavix 75 mg daily for 21 days through 03/18/24.
Cardiology recommends you take Lasix 20 mg daily.
Follow-up with your primary care doctor in 1 week, and cardiology in 2-4 weeks.
Stand Alone Forms: DC Instructions- Cath/EP Lab
Referrals:
Walter Sofia CRNP [Family Provider] - in less than 1 week
Valerie Crain MD [Active] - in two to four weeks
Additional Discharge Medication Instructions: Hold Metformin post procedure, resume on Thursday am
Prescriptions:
New
furosemide [Lasix] 20 mg tablet
20 mg PO DAILY Qty: 90 5RF
clopidogrel 75 mg Tablet
75 mg PO DAILY Qty: 20 0RF
Continued
atorvastatin 80 MG tablet
80 mg PO QPM Qty: 30 11RF
multivitamin [One Daily Multivitamin] 1 EACH tablet
1 ea PO DAILY
aspirin 81 mg Tablet,Delayed Release (Dr/Ec)
81 mg PO DAILY
acetaminophen [Tylenol] 325 mg Tablet
650 mg PO Q4H PRN (Reason: shoulder pain)
ezetimibe [Zetia] 10 mg Tablet
10 mg PO QPM
metoprolol tartrate 100 mg Tablet
100 mg PO BID
amlodipine 2.5 mg Tablet
2.5 mg PO DAILY
lisinopril 5 mg Tablet
5 mg PO DAILY
magnesium Tablet
1 tab PO DAILY
omeprazole 20 mg Tablet,Delayed Release (Dr/Ec)
20 mg PO DAILY
Jardiance 10 mg Tablet
10 mg PO DAILY
Vitamin D3
1 tab PO DAILY
Held
metformin 500 MG tablet
1,000 mg PO BID@0800,1700
Hold Instructions: Resume on 02/28/24.
Discharge Orders:
Discharge Patient (As Directed); Ordered 02/29/24
Ordered By: Gilma Morales
Discharge Date and Time
Print Language: UKRAINIAN
== END 2024-02-29 14:35 | disposition home or self-care (01) | DRG 91 ==
LOC: 4 WEST ACU 11:59
PROVIDERS: Internal Medicine; Internal Medicine Interventional Cardiology; Nurse Practitioner; Psychiatry & Neurology Neurology; ADMITTING PHYSICIAN Internal Medicine; CONSULT PHYSICIAN Internal Medicine Cardiovascular Disease; FAMILY PHYSICIAN Nurse Practitioner Gerontology
PROC: B211YZZ Fluoroscopy of Multiple Coronary Arteries using Other Contrast (ICD-10-PCS; 2024-02-26)
PROC: 4A023N7 Measurement of Cardiac Sampling and Pressure, Left Heart, Percutaneous Approach (ICD-10-PCS; 2024-02-26)
PROC: B213YZZ Fluoroscopy of Multiple Coronary Artery Bypass Grafts using Other Contrast (ICD-10-PCS; 2024-02-26)
DX: I97.820 Postprocedural cerebrovascular infarction following cardiac surgery (principal); I63.40 Cerebral infarction due to embolism of unspecified cerebral artery; I25.10 Atherosclerotic heart disease of native coronary artery without angina pectoris; E11.9 Type 2 diabetes mellitus without complications; E66.9 Obesity, unspecified; E78.00 Pure hypercholesterolemia, unspecified; I10 Essential (primary) hypertension; K21.9 Gastro-esophageal reflux disease without esophagitis; E55.9 Vitamin D deficiency, unspecified; E04.1 Nontoxic single thyroid nodule; E56.0 Deficiency of vitamin E; R29.810 Facial weakness; G83.24 Monoplegia of upper limb affecting left nondominant side; G31.9 Degenerative disease of nervous system, unspecified; Z79.84 Long term (current) use of oral hypoglycemic drugs; Z79.02 Long term (current) use of antithrombotics/antiplatelets; Z87.891 Personal history of nicotine dependence; Z95.1 Presence of aortocoronary bypass graft; Z95.5 Presence of coronary angioplasty implant and graft; Z79.899 Other long term (current) drug therapy; Z79.82 Long term (current) use of aspirin; Z68.29 Body mass index [BMI] 29.0-29.9, adult; Y84.0 Cardiac catheterization as the cause of abnormal reaction of the patient, or of later complication, without mention of misadventure at the time of the procedure
CPT/HCPCS: 70496; 70498; 70551; 80048; 80053; 80061; 82962; 83036; 83735; 84443; 85025; 85027; 92523; 92526; 92610; 93005; 93306; 93459; 97161; 97165; C1760; C1894; Q9967

== ENCOUNTER → 2024-05-30 15:39 | Outpatient (REF) | payer BC, SELFPAY ==
[2024-05-30 16:25] LABS: INR 0.99; PT 13.6 Sec (11.4-14.6)
[2024-05-30 16:30] LABS: Blood Urea Nitrogen 17 mg/dl (9-20); Calcium 10.1 mg/dl (8.4-10.2); Carbon Dioxide 25 mmol/L (22-30); Chloride 97 mmol/L (98-107); Glucose 99 mg/dl (70-99); Potassium 4.1 mmol/L (3.5-5.1); Sodium 138 mmol/L (135-145); eGFR > 60.00
[2024-05-30 16:56] LABS: Urine Albumin Trace (Neg - Trace); Urine Bilirubin Negative (Negative); Urine Character Clear (Clear); Urine Color Yellow; Urine Glucose 2+ (Negative); Urine Ketone Negative (Negative); Urine Leukocyte Negative (Negative); Urine Nitrite Negative (Negative); Urine Occult Blood Negative (Negative); Urine Specific Gravity 1.025 (<1.030); Urine Urobilinogen Negative (Neg - 1+)
[2024-05-30 17:08] LABS: % Basophils 0.4 % (0-2); % Immature Granulocytes 0.2 % (0-0.5); % Lymphocytes 50.4 % (20.5-51.1); % Monocytes 8.6 % (1.7-9.3); % Neutrophils 37.4 % (42.2-75.2); Absolute Eosinophils 0.2 10^3/uL (0-0.7); Absolute Lymphocytes 2.7 10^3/uL (1.2-3.4); Absolute Monocytes 0.5 10^3/uL (0.1-0.6); Hematocrit 39.3 % (39.0-52.0); Mean Corp Hgb Conc. 33.1 g/dL (33.0-37.0); Mean Corpuscular Hgb 29.2 pg (27.0-31.0); Mean Corpuscular Volume 88.3 fL (80.0-94.0); Mean Platelet Volume 9.6 fL (7.4-10.4); Nucleated Red Blood Cells % 0 % (-); Platelet Count 284 10^3/uL (130-400); Red Blood Cell Count 4.45 10^6/uL (4.70-6.10); Red Cell Dist. Width 12.6 % (11.5-14.5); White Blood Cell Count 5.3 10^3/uL (4.8-10.8)
== END ==
LOC: REG 15:39
DX: N28.89 Other specified disorders of kidney and ureter (principal)
CPT/HCPCS: 36415; 80048; 81003; 85025; 85610; 86850; 86900; 86901; 87086